=== PATIENT | male | born 1965 | race Caucasian/White ===

== ENCOUNTER → 2018-03-20 | Outpatient (CLI) | payer BC ==
[2018-03-20 13:53] VITALS: BP 177/91; PULSE 77; RESP 16; TEMP 98; BMI 55.0
[2018-03-20 15:16] LABS: HCT 45.4 % (39.0-53.0); HGB 14.5 gm/dL (13.0-17.5); MCH 25.5 pg (25.0-35.0); MCV 79.7 fL (80.0-100.0); Mean Platelet Volume 7.1; Platelet Count 185 k/uL (150-450); RBC 5.69 m/uL (4.30-5.90); RDW 15.7 % (11.5-15.5); WBC 5.8 k/uL (3.8-10.6)
[2018-03-20 15:24] LABS: ALT 62 U/L (21-72); AST 32 U/L (17-59); Albumin 4.1 g/dL (3.5-5.0); Alkaline Phosphatase 76 U/L (38-126); Anion Gap 14 mmol/L; Blood Urea Nitrogen 16 mg/dL (9-20); Calcium 9.5 mg/dL (8.4-10.2); Carbon Dioxide 27 mmol/L (22-30); Chloride 104 mmol/L (98-107); Cholesterol 111 mg/dL (<200); Glucose 134 mg/dL (74-99); HDL Cholesterol 27 mg/dL (40-60); LDL Cholesterol,Calculated 12 mg/dL (0-99); Potassium 3.8 mmol/L (3.5-5.1); Sodium 145 mmol/L (137-145); Total Bilirubin 0.4 mg/dL (0.2-1.3); Total Protein 6.7 g/dL (6.3-8.2); Triglycerides 361 mg/dL (<150)
--- NOTE | 2018-03-20 15:32 | P.HPBAR ---
Bariatric H&P - History & Physicial H&P Date: 03/20/18 History & Physicial: Visit/CC: initial visit Patient initial contact: Initial weight: 187.697 kg Initial weight in pounds: 413.80 Height: 6 ft Initial BMI: 56.1 Last weight: Current weight: 184.159 kg Current weight in pounds: 406.00 Current BMI: 55.0 [place] body weight (based on NIH guidelines): 80.739 kg Excess body weight loss: 3.3% The patient is a 53 year-old M who presents for Bariatric Assessment. Patient presents today for initial visit regarding sleeve gastrectomy. She's had lifetime problems obesity. Patient is morbidly obese with BMI 55. She is interested in sleeve gastrectomy. Past Medical History Past Medical History: Deep Vein Thrombosis (DVT), Hypertension, Pulmonary Embolus (PE), Sleep Apnea/CPAP/BIPAP Additional Past Medical History / Comment(s): CHF (BILATERAL LEG EDEMA), SLEEP APNEA (USES C-PAP), DVT and PE secondary to ankle surgery immobilization in 2012 ; took Xarelto for a while now takes aspirin, cellulitis in left leg w/ recurrent hospitalizations History of Any Multi-Drug Resistant Organisms: None Reported Past Surgical History: Orthopedic Surgery Additional Past Surgical History / Comment(s): LEFT ANKLE 2013, COLONOSCOPY, MULTIPLE SKIN BIOPSIES, Past Anesthesia/Blood Transfusion Reactions: No Reported Reaction Past Psychological History: Depression Additional Psychological History / Comment(s): 07/13/16 Patient currently taking Prozac for depression (brother and father in April 2016) Smoking Status: Never smoker Past Alcohol Use History: Rare - Past Family History Father Family Medical History: Dementia, Hypertension Additional Family Medical History / Comment(s): April 2016 Mother Family Medical History: Cancer, Dementia Additional Family Medical History / Comment(s): Multiple siblings of patient's mother had various forms of cancer. Surgical - Exam Vital Signs Temp Pulse Resp BP 98 F 77 16 177/91 03/20/18 13:51 03/20/18 13:51 03/20/18 13:51 03/20/18 13:51 - General well developed, no distress - Eyes PERRL - ENT normal pinna - Neck no masses - Respiratory normal expansion - Abdomen Abdomen: soft, non tender Results - Labs 03/20/18 14:38 03/20/18 14:38 Abnormal Lab Results - Last 24 Hours (Table) 03/20/18 03/20/18 Range/Units 14:38 14:38 MCV 79.7 L (80.0-100.0) fL RDW 15.7 H (11.5-15.5) % Glucose 134 H (74-99) mg/dL Triglycerides 361 H (<150) mg/dL HDL Cholesterol 27 L (40-60) mg/dL Diabetes panel 03/20/18 Range/Units 14:38 Sodium 145 (137-145) mmol/L Potassium 3.8 (3.5-5.1) mmol/L Chloride 104 (98-107) mmol/L Carbon Dioxide 27 (22-30) mmol/L BUN 16 (9-20) mg/dL Creatinine 0.80 (0.66-1.25) mg/dL Glucose 134 H (74-99) mg/dL Calcium 9.5 (8.4-10.2) mg/dL AST 32 (17-59) U/L ALT 62 (21-72) U/L Alkaline Phosphatase 76 (38-126) U/L Total Protein 6.7 (6.3-8.2) g/dL Albumin 4.1 (3.5-5.0) g/dL Triglycerides 361 H (<150) mg/dL HDL Cholesterol 27 L (40-60) mg/dL Calcium panel 03/20/18 Range/Units 14:38 Calcium 9.5 (8.4-10.2) mg/dL Albumin 4.1 (3.5-5.0) g/dL Pituitary panel 03/20/18 Range/Units 14:38 Sodium 145 (137-145) mmol/L Potassium 3.8 (3.5-5.1) mmol/L Chloride 104 (98-107) mmol/L Carbon Dioxide 27 (22-30) mmol/L BUN 16 (9-20) mg/dL Creatinine 0.80 (0.66-1.25) mg/dL Glucose 134 H (74-99) mg/dL Calcium 9.5 (8.4-10.2) mg/dL Adrenal panel 03/20/18 Range/Units 14:38 Sodium 145 (137-145) mmol/L Potassium 3.8 (3.5-5.1) mmol/L Chloride 104 (98-107) mmol/L Carbon Dioxide 27 (22-30) mmol/L BUN 16 (9-20) mg/dL Creatinine 0.80 (0.66-1.25) mg/dL Glucose 134 H (74-99) mg/dL Calcium 9.5 (8.4-10.2) mg/dL Total Bilirubin 0.4 (0.2-1.3) mg/dL AST 32 (17-59) U/L ALT 62 (21-72) U/L Alkaline Phosphatase 76 (38-126) U/L Total Protein 6.7 (6.3-8.2) g/dL Albumin 4.1 (3.5-5.0) g/dL Bariatric Assessment & Plan Plan: Morbid obesity with severe coronary disease. I went over the risks and benefits of sleeve gastrectomy including gastric leak, leak, perforation obstruction. Patient was scheduled for EGD. Bariatric Checklist Checklist: Plan: Checklist: EGD: 1. Hiatal hernia: 2. H. Pylori: HgbA1c: Vitamin D: Smoking: Never smoker Primary care physician referral: Psychiatry clearance: Cardiology clearance: Sleep study: Diet journal: VTE risk score: VTE risk level: Rehab needs at discharge:
[2018-03-20 19:03] LABS: Iron Saturation 19.79 (15.00-50.00)
[2018-03-20 19:10] LABS: Vitamin D 25 Hydroxy 36.2 ng/mL (30.0-100.0)
[2018-03-20 19:25] LABS: Folate, Serum >24.0 ng/mL
[2018-03-20 22:12] LABS: Hemoglobin A1C 5.8 % (4.0-6.0)
== END | disposition home or self-care (01) ==
LOC: BARWHC3 13:35
PROVIDERS: ATTEND Surgery
DX: E66.01 Morbid (severe) obesity due to excess calories (principal); I25.10 Atherosclerotic heart disease of native coronary artery without angina pectoris; F32.9 Major depressive disorder, single episode, unspecified; I11.9 Hypertensive heart disease without heart failure; G47.30 Sleep apnea, unspecified; E44.0 Moderate protein-calorie malnutrition; E55.9 Vitamin D deficiency, unspecified; Z86.718 Personal history of other venous thrombosis and embolism; Z86.711 Personal history of pulmonary embolism; Z99.89 Dependence on other enabling machines and devices; Z79.82 Long term (current) use of aspirin; Z68.43 Body mass index [BMI] 50.0-59.9, adult
CPT/HCPCS: 36415; 80053; 80061; 82306; 82607; 82728; 82746; 83036; 83540; 83550; 84425; 84443; 85027; 93005; 99211

== ENCOUNTER 2018-03-30 07:02 | Day surgery (SDC) | payer BC ==
[2018-03-28 15:01] VITALS: BMI 55.0
[~2018-03-30 07:02] MED LIST: LACTATED RINGERS 1,000 ML IV SCH
[2018-03-30 07:21] VITALS: TEMP 98.2
[2018-03-30] MEDS ORDERED: LIDOCAINE 1% 20 ML VIAL (10MG/ML) FOR IV START INTRADERMA ONE (07:41)
[2018-03-30 07:50] LABS: Glucose,Whole Blood 101 mg/dL (75-99)
[2018-03-30] MEDS ORDERED: GLYCOPYRROLATE 0.2 MG/ML 2 ML VIAL ONE (09:06)
[2018-03-30] MEDS ORDERED: LIDOCAINE 1% INJ 10MG/ML (20 ML MDV) ONE (09:06)
[2018-03-30] MEDS ORDERED: MIDAZOLAM 2 MG/2 ML VIAL ONE (09:06)
[2018-03-30] MEDS ORDERED: PROPOFOL 10 MG/ML 20 ML VIAL IV ONE (09:06)
[2018-03-30] MEDS ORDERED: KETAMINE 10 MG/ML 20 ML VIAL ONE (09:06)
--- NOTE | 2018-03-30 09:09 | P.GSHP ---
History of Present Illness H&P Date: 03/30/18 Chief Complaint: Morbid obesity, GERD, screening colonoscopy This is a 53-year-old male who presents today for EGD colonoscopy. Patient is currently undergoing workup for sleeve gastrectomy. He will also have a screening colonoscopy performed. Patient has some mild symptoms of GERD. His BMI is 55. Past Medical History Past Medical History: Deep Vein Thrombosis (DVT), Hypertension, Pulmonary Embolus (PE), Sleep Apnea/CPAP/BIPAP Additional Past Medical History / Comment(s): CHF (left LEG EDEMA), , DVT and PE secondary to ankle surgery immobilization in 2012;hx cellulitis left leg, yue inguinal hernias History of Any Multi-Drug Resistant Organisms: None Reported Past Surgical History: Heart Catheterization, Orthopedic Surgery Additional Past Surgical History / Comment(s): LEFT ANKLE 2013, COLONOSCOPY, MULTIPLE SKIN BIOPSIES, Past Anesthesia/Blood Transfusion Reactions: Motion Sickness Smoking Status: Never smoker - Past Family History Father Family Medical History: Dementia, Hypertension Additional Family Medical History / Comment(s): April 2016 Mother Family Medical History: Cancer Additional Family Medical History / Comment(s): . Medications and Allergies Home Medications Medication Instructions Recorded Confirmed Type Aspirin [Adult Low Dose Aspirin EC] 81 mg PO BID 07/15/16 03/28/18 History Lisinopril [Zestril] 40 mg PO BID 07/15/16 03/28/18 History Omeprazole 20 mg PO DAILY 07/15/16 03/28/18 History Potassium Chloride ER [K-Dur 20] 20 meq PO BID 07/15/16 03/28/18 History Spironolactone [Aldactone] 25 mg PO DAILY 07/15/16 03/28/18 History hydrALAZINE HCL 50 mg PO TID 07/15/16 03/28/18 History Escitalopram [Lexapro] 20 mg PO DAILY 03/21/18 03/28/18 History metFORMIN HCL [Glucophage] 500 mg PO BID 03/21/18 03/28/18 History sitaGLIPtin [Januvia] 100 mg PO DAILY 03/21/18 03/28/18 History Nebivolol HCl [Bystolic] 20 mg PO DAILY 03/28/18 03/28/18 History hydrALAZINE HCL 25 mg PO TID 03/28/18 03/28/18 History Allergies Allergy/AdvReac Type Severity Reaction Status Date / Time acetaminophen [From [place]] Allergy Anaphylaxis Verified 03/30/18 07:22 hydrocodone bitartrate Allergy Anaphylaxis Verified 03/30/18 07:22 [From [place]] codeine AdvReac Confusion Verified 03/30/18 07:22 Surgical - Exam Vital Signs Temp Pulse Resp BP Pulse Ox 98.2 F 70 18 180/87 97 03/30/18 07:20 03/30/18 07:20 03/30/18 07:20 03/30/18 07:20 03/30/18 07:20 - General well developed, no distress - Eyes PERRL - ENT normal pinna - Neck no masses - Respiratory normal expansion - Cardiovascular Rhythm: regular - Abdomen Abdomen: soft, non tender Results - Labs Abnormal Lab Results - Last 24 Hours (Table) 03/30/18 Range/Units 07:49 POC Glucose (mg/dL) 101 H (75-99) mg/dL Assessment and Plan Assessment: GERD, morbid obesity with BMI 55. We'll perform EGD and screening colonoscopy.
--- NOTE | 2018-03-30 09:29 | P.OP ---
Date of Procedure: 03/30/18 Preoperative Diagnosis: Morbid obesity Screening colonoscopy Postoperative Diagnosis: Antral gastritis No evidence of hiatal hernia Normal colon Procedure(s) Performed: EGD Colonoscopy Anesthesia: MAC Surgeon: Orlando Lares Pathology: other (Antrum) Condition: stable Disposition: PACU Description of Procedure: PROCEDURE: The patient was placed on the endoscopy table in the lateral position. Digital rectal examination was performed which revealed no abnormalities. The prostate was symmetrical without nodules. Flexible colonoscope was then placed in the patient's anus and passed throughout the entire colon. The ileocecal valve was visualized. The cecum, ascending, transverse, descending and sigmoid colon were normal. The rectum was normal as well. There were no masses, polyps or diverticula noted in the entire colon. Next, the gastroscope placed oropharynx passed in the esophagus and into the stomach. Scope was then placed through the pylorus. The first and second portion of the duodenum appeared normal. Scope was then brought back the antrum and this appeared mildly inflamed. Scope was then retroflexed and the remainder of the stomach appeared normal. The GE junction was at 40 cm. There is no evidence of hiatal hernia. The distal esophagus appeared normal. The proximal esophagus was normal. The scope was withdrawn for patient.
[2018-03-30 09:46] VITALS: RESP 16
[2018-03-30 09:55] VITALS: BP 157/75; PULSE 69
[2018-03-30 10:03] LABS: Glucose,Whole Blood 99 mg/dL (75-99)
== END 2018-03-30 10:11 | disposition home or self-care (01) ==
LOC: ORWHC2ENDO 07:02
PROVIDERS: ATTEND Surgery
DX: Z12.11 Encounter for screening for malignant neoplasm of colon (principal); K29.50 Unspecified chronic gastritis without bleeding; K21.9 Gastro-esophageal reflux disease without esophagitis; E66.01 Morbid (severe) obesity due to excess calories; I11.0 Hypertensive heart disease with heart failure; I50.9 Heart failure, unspecified; E11.9 Type 2 diabetes mellitus without complications; G47.33 Obstructive sleep apnea (adult) (pediatric); F39 Unspecified mood [affective] disorder; Z68.43 Body mass index [BMI] 50.0-59.9, adult; Z79.82 Long term (current) use of aspirin; Z86.711 Personal history of pulmonary embolism; Z86.718 Personal history of other venous thrombosis and embolism; Z82.49 Family history of ischemic heart disease and other diseases of the circulatory system; Z79.84 Long term (current) use of oral hypoglycemic drugs; Z79.899 Other long term (current) drug therapy; Z88.5 Allergy status to narcotic agent
CPT/HCPCS: 88305; 45378; 43239; J2250; J2001; J2704

== ENCOUNTER → 2018-04-10 | Outpatient (CLI) | payer BC ==
[2018-04-10 12:50] VITALS: BMI 54.8
== END | disposition home or self-care (01) ==
LOC: BARWHC3 08:32
PROVIDERS: ATTEND Surgery
DX: E66.01 Morbid (severe) obesity due to excess calories (principal)
CPT/HCPCS: 97804

== ENCOUNTER → 2018-04-17 | Outpatient (CLI) | payer BC ==
[2018-04-17 14:50] VITALS: BP 194/82; PULSE 82; RESP 16; TEMP 98.3; BMI 55.0
--- NOTE | 2018-04-17 15:08 | P.HPBAR ---
Bariatric H&P - History & Physicial H&P Date: 04/17/18 History & Physicial: Visit/CC: pre-surg Patient initial contact: Initial weight: 187.697 kg Initial weight in pounds: 413.80 Height: 6 ft Initial BMI: 56.1 Last weight: Current weight: 184.159 kg Current weight in pounds: 406.00 Current BMI: 55.0 [place] body weight (based on NIH guidelines): 80.739 kg Excess body weight loss: 3.3% The patient is a 53 year-old M who presents for Bariatric Assessment. Presents for preoperative sleeve gastric reconsultation. Patient is morbidly obese with BMI 55. Apparently scheduled for sleeve gastrectomy next week. Past Medical History Past Medical History: Deep Vein Thrombosis (DVT), Hypertension, Pulmonary Embolus (PE), Sleep Apnea/CPAP/BIPAP Additional Past Medical History / Comment(s): CHF (left LEG EDEMA), , DVT and PE secondary to ankle surgery immobilization in 2012;hx cellulitis left leg, yue inguinal hernias History of Any Multi-Drug Resistant Organisms: None Reported Past Surgical History: Heart Catheterization, Orthopedic Surgery Additional Past Surgical History / Comment(s): LEFT ANKLE 2013, COLONOSCOPY, MULTIPLE SKIN BIOPSIES, Past Anesthesia/Blood Transfusion Reactions: Motion Sickness Past Psychological History: Anxiety, Depression Additional Psychological History / Comment(s): . Smoking Status: Never smoker Past Alcohol Use History: Occasional Past Drug Use History: None Reported - Past Family History Father Family Medical History: Dementia, Hypertension Additional Family Medical History / Comment(s): April 2016 Mother Family Medical History: Cancer Additional Family Medical History / Comment(s): . Surgical - Exam Vital Signs Temp Pulse Resp BP 98.3 F 82 16 194/82 04/17/18 14:44 04/17/18 14:44 04/17/18 14:44 04/17/18 14:44 - General well developed, well nourished, no distress - Eyes PERRL - ENT normal pinna - Abdomen Abdomen: soft Bariatric Assessment & Plan Plan: RBC with BMI 55. Patient will be scheduled for sleeve gastrectomy next. We will over the risks and benefits of the sleeve yesterday. I discussed the patient the risk of stent gastric staple line disruption, bleeding or scarring. He is also aware of the risk of GERD. Bariatric Checklist Checklist: Plan: Checklist: EGD: 1. Hiatal hernia: 2. H. Pylori: HgbA1c: Vitamin D: Smoking: Never smoker Primary care physician referral: Dr. Reno Psychiatry clearance: Cardiology clearance: Sleep study: Diet journal: VTE risk score: VTE risk level: Rehab needs at discharge:
== END | disposition home or self-care (01) ==
LOC: BARWHC3 13:41
PROVIDERS: ATTEND Surgery
DX: Z01.818 Encounter for other preprocedural examination (principal); E66.01 Morbid (severe) obesity due to excess calories; Z68.43 Body mass index [BMI] 50.0-59.9, adult
CPT/HCPCS: 99211

== ENCOUNTER → 2018-04-26 | Outpatient (CLI) | payer BC ==
[2018-04-26 10:28] LABS: Basophils % (A) 0 %; Eosinophils # (A) 0.2 k/uL (0-0.7); Eosinophils % (A) 3 %; HCT 45.1 % (39.0-53.0); Lymphocytes # (A) 1.5 k/uL (1.0-4.8); Lymphocytes % (A) 24 %; MCH 26.6 pg (25.0-35.0); MCHC 33.4 g/dL (31.0-37.0); MCV 79.8 fL (80.0-100.0); Mean Platelet Volume 6.9; Monocytes # (A) 0.4 k/uL (0-1.0); Monocytes % (A) 6 %; Neutrophils # (A) 4.2 k/uL (1.3-7.7); Neutrophils % (A) 65 %; Platelet Count 179 k/uL (150-450); RBC 5.65 m/uL (4.30-5.90); RDW 15.9 % (11.5-15.5); WBC 6.4 k/uL (3.8-10.6)
[2018-04-26 11:01] LABS: ALT 68 U/L (21-72); AST 36 U/L (17-59); Alkaline Phosphatase 86 U/L (38-126); Anion Gap 11 mmol/L; Blood Urea Nitrogen 18 mg/dL (9-20); Calcium 9.4 mg/dL (8.4-10.2); Carbon Dioxide 28 mmol/L (22-30); Chloride 104 mmol/L (98-107); Glucose 111 mg/dL (74-99); Potassium 4.4 mmol/L (3.5-5.1); Sodium 143 mmol/L (137-145); Total Bilirubin 0.3 mg/dL (0.2-1.3); Total Protein 6.6 g/dL (6.3-8.2)
== END | disposition home or self-care (01) ==
LOC: LABWHC1 10:02
PROVIDERS: ATTEND Surgery
DX: Z01.812 Encounter for preprocedural laboratory examination (principal)
CPT/HCPCS: 36415; 80053; 85025

== ENCOUNTER 2018-05-11 07:40 | Inpatient (IN) | payer BC ==
[~2018-05-11 07:40] MED LIST changes: +DEXAMETHASONE SOD PHOSPHATE 10 MG/ML 1 ML VIAL IV ONE; +ENOXAPARIN 40 MG/0.4 ML SYRINGE SQ ONE; -LACTATED RINGERS 1,000 ML IV SCH; +ONDANSETRON 4 MG/2 ML VIAL IVP ONE
[2018-05-11] MEDS: LACTATED RINGERS 1,000 ML IV SCH (10:00)
[2018-05-11 10:07] LABS: Glucose,Whole Blood 92 mg/dL (75-99)
[2018-05-11] MEDS ORDERED: SCOPOLAMINE 1.5MG/72HR PATCH TRANSDERM ONE (10:14)
--- NOTE | 2018-05-11 10:50 | P.GSHP ---
History of Present Illness H&P Date: 05/11/18 Chief Complaint: Morbid obesity, BMI 50 This a 53-year-old male who presents today for laparoscopic sleeve gastrectomy. Patient's had lifetime problems obesity. Patient is aware the risk of surgery including conversion to the open procedure and injury to the stomach, liver spleen. He is also aware the risk of gastric staple line bleeding, disruption or scarring. Past Medical History Past Medical History: Diabetes Mellitus, Deep Vein Thrombosis (DVT), Hypertension, Pulmonary Embolus (PE), Sleep Apnea/CPAP/BIPAP Additional Past Medical History / Comment(s): CHF (left LEG EDEMA), , DVT and PE secondary to ankle surgery immobilization in 2012;hx cellulitis left leg, yue inguinal hernias History of Any Multi-Drug Resistant Organisms: None Reported Past Surgical History: Heart Catheterization, Orthopedic Surgery Additional Past Surgical History / Comment(s): LEFT ANKLE 2013, COLONOSCOPY, MULTIPLE SKIN BIOPSIES, Past Anesthesia/Blood Transfusion Reactions: Motion Sickness Past Psychological History: Anxiety, Depression Additional Psychological History / Comment(s): . Smoking Status: Never smoker Past Alcohol Use History: Occasional Past Drug Use History: None Reported - Past Family History Father Family Medical History: Dementia, Hypertension Additional Family Medical History / Comment(s): April 2016 Mother Family Medical History: Cancer Additional Family Medical History / Comment(s): . Medications and Allergies Home Medications Medication Instructions Recorded Confirmed Type Aspirin [Adult Low Dose Aspirin EC] 81 mg PO BID 07/15/16 05/11/18 History Lisinopril [Zestril] 40 mg PO BID 07/15/16 04/27/18 History Omeprazole 20 mg PO DAILY 07/15/16 04/27/18 History Potassium Chloride ER [K-Dur 20] 20 meq PO BID 07/15/16 04/27/18 History Spironolactone [Aldactone] 25 mg PO DAILY 07/15/16 04/27/18 History hydrALAZINE HCL 75 mg PO TID 07/15/16 04/27/18 History Escitalopram [Lexapro] 20 mg PO DAILY 03/21/18 04/27/18 History metFORMIN HCL [Glucophage] 250 mg PO BID 03/21/18 04/27/18 History sitaGLIPtin [Januvia] 100 mg PO DAILY 03/21/18 04/27/18 History Nebivolol HCl [Bystolic] 20 mg PO W/LUNCH 03/28/18 04/27/18 History Allergies Allergy/AdvReac Type Severity Reaction Status Date / Time acetaminophen [From [place]] Allergy Anaphylaxis Verified 05/11/18 09:49 hydrocodone bitartrate Allergy Anaphylaxis Verified 05/11/18 09:49 [From [place]] codeine AdvReac Confusion Verified 05/11/18 09:49 Surgical - Exam Vital Signs Temp Pulse Resp BP Pulse Ox 98.3 F 67 18 143/67 96 05/11/18 09:51 05/11/18 09:51 05/11/18 09:51 05/11/18 09:51 05/11/18 09:51 - General well developed, no distress - Eyes PERRL - ENT normal pinna - Neck no masses - Respiratory normal expansion - Cardiovascular Rhythm: regular - Abdomen Abdomen: soft, non tender Assessment and Plan Assessment: Morbid obesity with BMI 50. We will perform laparoscopic sleeve gastrectomy.
[2018-05-11] MEDS ORDERED: NEOSTIGMINE 1 MG/ML 10 ML VIAL ONE (11:19)
[2018-05-11] MEDS ORDERED: PROPOFOL 10 MG/ML 20 ML VIAL IV ONE (11:19)
[2018-05-11] MEDS ORDERED: fentaNYL (PF) 50 MCG/ML 2 ML AMP ONE (11:19)
[2018-05-11] MEDS ORDERED: ROCURONIUM BROMIDE 10 MG/ML 10 ML VIAL IV ONE (11:19)
[2018-05-11] MEDS ORDERED: GLYCOPYRROLATE 0.2 MG/ML 2 ML VIAL ONE (11:19)
[2018-05-11] MEDS ORDERED: MIDAZOLAM 2 MG/2 ML VIAL ONE (11:19)
[2018-05-11] MEDS ORDERED: ePHEDrine SULFATE/0.9% NACL/PF 50 MG/5 ML SYRINGE IV ONE (11:19)
[2018-05-11] MEDS ORDERED: LIDOCAINE 1% INJ 10MG/ML (20 ML MDV) ONE (11:19)
[2018-05-11] MEDS ORDERED: SUCCINYLCHOLINE CHLORIDE VIAL 200 MG/10 ML VIAL IV ONE (11:19)
[2018-05-11] MEDS ORDERED: KETAMINE 10 MG/ML 20 ML VIAL ONE (11:19)
[2018-05-11] MEDS ORDERED: HYDROmorphone (PF) 1 MG/ML ONE (11:19)
[2018-05-11] MEDS ORDERED: LACTATED RINGERS 1,000 ML IV ONE (12:06)
[2018-05-11] MEDS ORDERED: HYDROmorphone 0.5 MG/0.5 ML SYRINGE IVP PRN (12:57)
[2018-05-11] MEDS ORDERED: NALOXONE 0.4 MG/ML 1 ML VIAL IV PRN (12:57)
--- NOTE | 2018-05-11 13:02 | P.OP ---
Date of Procedure: 05/11/18 Preoperative Diagnosis: Morbid obesity, BMI 51 Postoperative Diagnosis: Morbid obesity, BMI 51 Procedure(s) Performed: Laparoscopic sleeve gastrectomy Anesthesia: JENNI Surgeon: Orlando Lares Estimated Blood Loss (ml): 100 Pathology: other (Stomach) Condition: stable Disposition: PACU Description of Procedure: The patient was placed on the operating room table in the supine position. She received general anesthesia and then was placed in dorsal lithotomy position. Her abdomen was prepped and draped in sterile fashion. The skin incision sites were anesthetized 1% local Xylocaine. And then the skin was incised with an 11 blade in the left lateral position. Using a blade less trocar under direct visualization the peritoneal cavity was entered. The abdomen was insufflated and then a 5 mm laparoscope was placed into the peritoneal cavity. A 5 mm trocar was placed in the right epigastric, and right lateral position. A 15 mm trocar was placed in the supra-umbilical position and another 5 mm trocar was placed in the left lateral position. The left lateral lobe of the liver was retracted. The stomach was visualized. The greater curvature of the stomach was then dissected using the Harmonic scissors. The dissection occurred approximately 5 cm from the pylorus to the level of the left josefa. There was no hiatal hernia seen. At this point a 40-[place] bougie dilator was placed the oropharynx and passed into the esophagus and into the stomach by the TESTING MACHINE OPERATOR. The sleeve gastrectomy was performed by using the powered echelon stapler with a seam guard buttress material. Sequential firings of the stapler were performed. The gastric remnant was then brought out through the 15 mm trocar site. The dilator was withdrawn. And a orogastric tube was replaced into the stomach. The stomach was insufflated with 200 mL of methylene blue normal saline. There was no evidence of extravasation. The abdomen was irrigated there is no bleeding seen. The Gregorio-Cole device was used to close the 15 mm trocar with 0 Vicryl. Skin was closed with interrupted 3-0 Monocryl sutures once the trochars withdrawn. Dermabond dressing was applied. Patient was sent to recovery in stable condition.
[2018-05-11] MEDS ORDERED: ONDANSETRON 4 MG/2 ML VIAL IVP ONE (13:24)
[2018-05-11] MEDS: HYDROmorphone 0.5 MG/0.5 ML SYRINGE IVP PRN ×3 (13:27→14:36)
[2018-05-11 13:45] LABS: Glucose,Whole Blood 134 mg/dL (75-99)
[2018-05-11] MEDS ORDERED: PROMETHAZINE INJ 25 MG/ML 1 ML VIAL IVPB ONE (14:08)
[2018-05-11] MEDS: ONDANSETRON 4 MG/2 ML VIAL IVP PRN ×2 (15:12→22:15)
[2018-05-11] MEDS: ALBUTEROL NEBULIZED 2.5 MG/3 ML INHALATION SCH ×2 (15:24→19:38)
[2018-05-11 15:33] VITALS: BMI 50.1
[2018-05-11] MEDS: 0.9% NACL WITH KCL 20 MEQ/L 1,000 ML IV SCH ×2 (15:53→23:51)
--- NOTE | 2018-05-11 17:19 | US ---
EXAMINATION TYPE: US venous doppler duplex LE LT DATE OF EXAM: 05/11/2018 5:03 PM COMPARISON: NONE CLINICAL HISTORY: DVT history ; patient stated is post gastric sleeve bypass surgery this week; prior left leg DVT with chronic intermittent left leg swelling since 2014 after left ankle surgery SIDE PERFORMED: Left TECHNIQUE: The lower extremity deep venous system is examined utilizing real time linear array sonog elena with graded compression, doppler sonography and color-flow sonography. VESSELS IMAGED: Common Femoral Vein Deep Femoral Vein Greater Saphenous Vein * Femoral Vein Popliteal Vein Small Saphenous Vein * Proximal Calf Veins (* superficial vessels) Left Leg: Negative for DVT IMPRESSION: Negative exam. No evidence of deep venous thrombosis in the left leg.
[2018-05-11] MEDS ORDERED: ONDANSETRON 4 MG/2 ML VIAL IVP STA (17:33)
[2018-05-11] MEDS: KETOROLAC 30 MG/ML 1 ML VIAL IVP SCH ×2 (17:40→23:50)
[2018-05-11 18:13] LABS: Glucose,Whole Blood 147 mg/dL (75-99)
[2018-05-11 21:17] LABS: Glucose,Whole Blood 142 mg/dL (75-99)
[2018-05-11] MEDS: INSULIN ASPART 100 UNIT/ML 1 ML 10 ML VIAL SQ SCH (21:35)
[2018-05-11] MEDS: LISINOPRIL 20 MG TAB PO SCH (21:35)
--- NOTE | 2018-05-11 22:23 | P.CONS ---
History of Present Illness - Reason for Consult Consult date: 05/11/18 Medical management of hypertension diabetes and other multiple medical prob - Chief Complaint Elective sleeve gastrectomy - History of Present Illness Patient is a 53-year-old male with a known history of morbid obesity BMI 50.1, hypertension, diabetes type 2, history of DVT/PE and also obstructive sleep apnea on CPAP at home was admitted to the hospital for elective Laparoscopic sleeve gastrectomy. Patient tolerated the procedure very well. Currently denied any complaints of chest pain or shortness of breath. No nausea vomiting or abdominal pain. Patient does have some soreness at the surgical site. Otherwise no fever no chills. No headache or dizziness or lightheadedness. Review of Systems Constitutional: Patient denies any fever or chills . No generalized weakness or weight loss. Abdomen: Patient denied nausea vomiting and diarrhea and abdominal pain. Does have some soreness in the abdomen Cardiovascular: Patient denies any chest pain or short of breath no palpitations. Respiratory: patient denied any cough is from production. No shortness of breath Neurologic: Patient denied any numbness or tingling headache. Musculoskeletal: Patient denies any complaints of joint swelling or deformity. Skin: Negative Psychiatric: Negative Endocrine: No heat or cold intolerance. No recent weight gain. Genitourinary: No dysuria or hematuria. All other 14 point ROS negative except the above Past Medical History Past Medical History: Diabetes Mellitus, Deep Vein Thrombosis (DVT), Hypertension, Pulmonary Embolus (PE), Sleep Apnea/CPAP/BIPAP Additional Past Medical History / Comment(s): CHF (left LEG EDEMA), , DVT and PE secondary to ankle surgery immobilization in 2012;hx cellulitis left leg, yue inguinal hernias History of Any Multi-Drug Resistant Organisms: None Reported Past Surgical History: Heart Catheterization, Orthopedic Surgery Additional Past Surgical History / Comment(s): LEFT ANKLE 2013, COLONOSCOPY, MULTIPLE SKIN BIOPSIES, Past Anesthesia/Blood Transfusion Reactions: Motion Sickness Past Psychological History: Anxiety, Depression Additional Psychological History / Comment(s): . Smoking Status: Never smoker Past Alcohol Use History: Occasional Past Drug Use History: None Reported - Past Family History Father Family Medical History: Dementia, Hypertension Additional Family Medical History / Comment(s): April 2016 Mother Family Medical History: Cancer Additional Family Medical History / Comment(s): . Medications and Allergies Home Medications Medication Instructions Recorded Confirmed Type Aspirin [Adult Low Dose Aspirin EC] 81 mg PO BID 07/15/16 05/11/18 History Lisinopril [Zestril] 40 mg PO BID 07/15/16 05/11/18 History Omeprazole 20 mg PO DAILY 07/15/16 05/11/18 History Potassium Chloride ER [K-Dur 20] 20 meq PO BID 07/15/16 05/11/18 History Spironolactone [Aldactone] 25 mg PO DAILY 07/15/16 05/11/18 History hydrALAZINE HCL 75 mg PO TID 07/15/16 05/11/18 History Escitalopram [Lexapro] 20 mg PO DAILY 03/21/18 05/11/18 History metFORMIN HCL [Glucophage] 250 mg PO BID 03/21/18 05/11/18 History sitaGLIPtin [Januvia] 100 mg PO DAILY 03/21/18 05/11/18 History Nebivolol HCl [Bystolic] 20 mg PO W/LUNCH 03/28/18 05/11/18 History Allergies Allergy/AdvReac Type Severity Reaction Status Date / Time acetaminophen [From [place]] Allergy Anaphylaxis Verified 05/11/18 14:05 hydrocodone bitartrate Allergy Anaphylaxis Verified 05/11/18 14:05 [From [place]] codeine AdvReac Confusion Verified 05/11/18 14:05 Physical Exam Vitals: Vital Signs Temp Pulse Pulse Resp BP BP Pulse Ox 05/11/18 14:30 75 16 142/64 100 05/11/18 14:15 75 16 150/70 99 05/11/18 14:00 75 16 157/72 99 05/11/18 13:45 73 16 139/64 99 05/11/18 13:30 84 16 140/67 97 05/11/18 13:17 97.2 F L 73 16 139/66 94 L 05/11/18 09:51 98.3 F 67 18 143/67 96 Intake and Output 05/10/18 05/11/18 05/11/18 22:59 06:59 14:59 Intake Total 1800 Output Total 100 Balance 1700 Intake: IV 1800 Output: Estimated Blood Loss 100 Other: Weight 167.602 kg PHYSICAL EXAMINATION: Patient is lying in the bed comfortably, no acute distress, awake alert and oriented. Morbidly obese. HEENT: Normocephalic. Neck is supple. Pupils reactive. Nostrils clear. Oral cavity is moist. Ears reveal no drainage. Neck reveals no JVD, carotid bruits, or thyromegaly. CHEST EXAMINATION: Trachea is central. Symmetrical expansion. Bibasilar diminished air entry. Lung ma clear to auscultation and percussion. CARDIAC: Normal S1, S2 with no gallops. No murmurs ABDOMEN: Soft. Bowel sounds normal. No organomegaly. No abdominal bruits. Extremities: reveal no edema. No clubbing or cyanosis Neurologically awake, alert, oriented x3 with well-coordinated movements. No focal deficits noted Skin: No rash or skin lesions. Psychiatric: Cooperative. Could not be assessed completely Musculoskeletal: No joint swelling or deformity. Normal range of motion. Results Labs: Abnormal Lab Results - Last 24 Hours (Table) 05/11/18 Range/Units 13:43 POC Glucose (mg/dL) 134 H (75-99) mg/dL Assessment and Plan Assessment: Morbid obesity status post laparoscopic sleeve gastrectomy on 05/11/2018 Morbid obesity BMI 50.1 Hypertension. Fairly controlled. diabetes type 2. [id number] History of DVT/PE secondary to ankle surgery immobilization in 2012 Bilateral lower extremities chronic swelling with venous stasis changes. Obstructive sleep apnea on CPAP at home Bilateral inguinal hernias Anxiety/depression DVT prophylaxis Plan: Patient will be continued on home blood pressure medications as tolerated. Patient is on multiple blood pressure medications at home including nebivolol, lisinopril, spironolactone, hydralazine. Patient will be started on insulin sliding scale and Accu-Cheks. Continue with pain medications and oral regimen. We will check bilateral lower extremity duplex scan to rule out DVT Encourage ambulation and incentive spirometry. DVT prophylaxis. We will follow up closely Further recommendations based on the clinical course. Discussed with his family at bedside in detail. Thank you for your consult Time with Patient: Greater than 30
[2018-05-11] MEDS ORDERED: ONDANSETRON 4 MG/2 ML VIAL IVP PRN (22:47)
[2018-05-12] MEDS: KETOROLAC 30 MG/ML 1 ML VIAL IVP SCH ×4 (05:09→23:42)
[2018-05-12] MEDS: 0.9% NACL WITH KCL 20 MEQ/L 1,000 ML IV SCH (05:47)
[2018-05-12] MEDS: LACTATED RINGERS 1,000 ML IV SCH (05:48)
[2018-05-12 06:44] LABS: Anisocytosis Slight; Basophils % (A) 0 %; Eosinophils % (A) 0 %; HCT 41.6 % (39.0-53.0); HGB 13.7 gm/dL (13.0-17.5); Lymphocytes # (A) 0.7 k/uL (1.0-4.8); Lymphocytes % (A) 11 %; MCH 26.8 pg (25.0-35.0); MCV 81.4 fL (80.0-100.0); Mean Platelet Volume 7.3; Monocytes # (A) 0.4 k/uL (0-1.0); Monocytes % (A) 6 %; Neutrophils # (A) 5.2 k/uL (1.3-7.7); Neutrophils % (A) 82 %; Platelet Count 160 k/uL (150-450); RBC 5.11 m/uL (4.30-5.90); WBC 6.3 k/uL (3.8-10.6)
[2018-05-12 06:52] LABS: Anion Gap 15 mmol/L; Blood Urea Nitrogen 19 mg/dL (9-20); Calcium 8.6 mg/dL (8.4-10.2); Carbon Dioxide 22 mmol/L (22-30); Chloride 107 mmol/L (98-107); Phosphorus 3.2 mg/dL (2.5-4.5); Potassium 4.6 mmol/L (3.5-5.1); Sodium 144 mmol/L (137-145)
[2018-05-12 07:28] LABS: Glucose,Whole Blood 108 mg/dL (75-99)
[2018-05-12] MEDS: INSULIN ASPART 100 UNIT/ML 1 ML 10 ML VIAL SQ SCH ×4 (07:37→21:32)
[2018-05-12] MEDS: ALBUTEROL NEBULIZED 2.5 MG/3 ML INHALATION SCH ×4 (08:02→20:54)
--- NOTE | 2018-05-12 08:38 | P.PN ---
Subjective Progress Note Date: 05/12/18 53-year-old male sitting up on the edge of the bed this morning. Patient reports a nausea sensation no active emesis states is belching and passing gas rectal no stool no difficulty in urinating surgical incision sites dry Patient is postop May 11 laparoscopic sleeve gastrectomy for morbid obesity BMI 51 Objective - Vital Signs Vital signs: Vital Signs Temp 98.4 F 05/12/18 07:33 Pulse 92 05/12/18 08:11 Resp 17 05/12/18 07:33 BP 154/75 05/12/18 07:33 Pulse Ox 94 L 05/12/18 08:00 Intake & Output 05/11/18 05/12/18 05/12/18 18:59 06:59 18:59 Intake Total 1800 1800 Output Total 100 Balance 1700 1800 Weight 167.602 kg Intake: IV 1800 Intake, IV Titration 1800 Amount 0.9% NaCl with KCl 20 Meq 1800 /l 1,000 ml @ 150 mls/hr IV .Q6H40M [facility] Rx#: [id number] Output: Estimated Blood Loss 100 Other: Voiding Method Toilet # Voids 1 - Exam Physical exam 53-year-old pleasant oriented 3 sitting up on the edge of the bed denies dizziness lightheadedness chest pain or shortness of breath reports a nausea sensation no emesis Lungs adequate air movement bilaterally on room air sats are 94% Heart S1-S2 audible regular Abdomen obese soft not distended bowel tones present surgical incision site dressings dry reports a nausea sensation no emesis passing gas rectally belching no stool no difficulty in urinating surgical tenderness appropriate Extremities chronic venous stasis lower extremities chronic edema nonpitting - Labs CBC & Chem 7: 05/12/18 06:16 05/12/18 06:16 Labs: Abnormal Lab Results - Last 24 Hours (Table) 05/11/18 05/11/18 05/11/18 Range/Units 13:43 18:10 21:15 RDW (11.5-15.5) % Lymphocytes # (1.0-4.8) k/uL POC Glucose (mg/dL) 134 H 147 H 142 H (75-99) mg/dL 05/12/18 05/12/18 Range/Units 06:16 07:14 RDW 16.0 H (11.5-15.5) % Lymphocytes # 0.7 L (1.0-4.8) k/uL POC Glucose (mg/dL) 108 H (75-99) mg/dL Assessment and Plan Assessment: Impression Morbid obesity BMI 51 due to excessive calories Postop April 11 laparoscopic sleeve gastrectomy Obstructive sleep apnea with CPAP therapy History of left leg DVT Type 2 diabetes non-insulin Hypertension essential Bilateral lower extremity venous stasis changes with chronic lower extremity edema Anxiety depressive disorder Plan Continue postop bariatric care PT OT eval Follow-up on pending studies Encourage the use of the incentive spirometer Encourage ambulation Home meds as appropriate Pain control The above impression and plan of care have been discussed and directed by signing physician. Kalpana Logan nurse practitioner acting as scribe for signing physician.
[2018-05-12] MEDS ORDERED: ENOXAPARIN 40 MG/0.4 ML SYRINGE SQ SCH (09:00)
[2018-05-12] MEDS ORDERED: NON-FORMULARY DRUG (Omeprazole [Omeprazole] 20 MG) PO SCH (09:00)
--- NOTE | 2018-05-12 10:07 | FL ---
SINGLE CONTRAST UPPER GI EXAMINATION: CLINICAL HISTORY: 53-year-old male postop bariatric surgery, gastric sleeve. TECHNIQUE: Single contrast exam performed with 50 ml Isovue-370 contrast. Total fluoroscopy time: 1.55 minutes. Total images: 25. FINDINGS: The patient swallowed oral contrast without difficulty or delay. Esophageal peristalsis and motility are within normal limits. Postsurgical changes of sleeve gastrectomy are demonstrated. There is initial mild delay in passage o f contrast into the stomach and then into the surgery as portion of the stomach. There are 2 focal ac cumulations of contrast along the proximal stomach likely corresponding to nondistended residual fund us prior to the sleeve gastrectomy. There is satisfactory passage of contrast across the gastric slee ve without evidence of contrast extravasation to suggest leak. No significant postsurgical free air is identified on either side. IMPRESSION: 1. Outpouching of contrast along the proximal stomach prior to the sleeve likely transition between n onsurgerized stomach and the sleeve gastrectomy. No convincing evidence for leak. Images are availabl e for review by the surgeon. 2. Mild postoperative obstruction/delay. 3. No postsurgical free air seen.
[2018-05-12] MEDS: ENOXAPARIN 60 MG/0.6 ML SYRINGE SQ SCH ×2 (10:26→21:34)
[2018-05-12] MEDS: ESCITALOPRAM 20 MG TAB PO SCH (10:27)
[2018-05-12] MEDS: PANTOPRAZOLE 40 MG/10 ML VIAL IV SCH (10:27)
[2018-05-12] MEDS: LISINOPRIL 20 MG TAB PO SCH ×2 (10:27→21:34)
[2018-05-12 11:27] LABS: Glucose,Whole Blood 121 mg/dL (75-99)
[2018-05-12] MEDS: 1: MVI, ADULT NO.4 WITH VIT K 10 ML, THIAMINE 100 MG, FOLIC ACID 1 MG, POTASSIUM CHLORID IV SCH ×12 (14:22→20:09)
[2018-05-12 16:53] LABS: Glucose,Whole Blood 102 mg/dL (75-99)
[2018-05-12 18:57] LABS: Hemoglobin A1C 5.6 % (4.0-6.0)
[2018-05-12 19:57] LABS: Glucose,Whole Blood 101 mg/dL (75-99)
--- NOTE | 2018-05-12 23:12 | P.PN ---
Subjective Progress Note Date: 05/12/18 Principal diagnosis: Laparoscopic gastric sleeve surgery Patient is a 53-year-old male with a known history of morbid obesity BMI 50.1, hypertension, diabetes type 2, history of DVT/PE and also obstructive sleep apnea on CPAP at home was admitted to the hospital for elective Laparoscopic sleeve gastrectomy. Patient tolerated the procedure very well. Currently denied any complaints of chest pain or shortness of breath. No nausea vomiting or abdominal pain. Patient does have some soreness at the surgical site. Otherwise no fever no chills. No headache or dizziness or lightheadedness. 05/12/2018 Patient denied any complaints of chest pain or shortness of breath. Able to tolerate liquids. Upper GI series showed no evidence of leak. No fever no chills. Blood pressure is well controlled. No other acute overnight issues. Pain is fairly controlled All other review of systems negative except the above. current medications reviewed Objective - Vital Signs Vital signs: Vital Signs Temp 98.4 F 05/12/18 07:33 Pulse 92 05/12/18 11:45 Resp 17 05/12/18 07:33 BP 154/75 05/12/18 07:33 Pulse Ox 94 L 05/12/18 08:00 Intake & Output 05/11/18 05/12/18 05/12/18 18:59 06:59 18:59 Intake Total 1800 1800 Output Total 100 Balance 1700 1800 Weight 167.602 kg 167.602 kg Intake: IV 1800 Intake, IV Titration 1800 Amount 0.9% NaCl with KCl 20 Meq 1800 /l 1,000 ml @ 150 mls/hr IV .Q6H40M [facility] Rx#: [id number] Output: Estimated Blood Loss 100 Other: Voiding Method Toilet # Voids 1 - Exam PHYSICAL EXAMINATION: Patient is lying in the bed comfortably, no acute distress, awake alert and oriented. Morbidly obese. HEENT: Normocephalic. Neck is supple. Pupils reactive. Nostrils clear. Oral cavity is moist. Ears reveal no drainage. Neck reveals no JVD, carotid bruits, or thyromegaly. CHEST EXAMINATION: Trachea is central. Symmetrical expansion. Bibasilar diminished air entry. Lung ma clear to auscultation and percussion. CARDIAC: Normal S1, S2 with no gallops. No murmurs ABDOMEN: Soft. Bowel sounds normal. No organomegaly. No abdominal bruits. Extremities: reveal no edema. No clubbing or cyanosis Neurologically awake, alert, oriented x3 with well-coordinated movements. No focal deficits noted Skin: No rash or skin lesions. Psychiatric: Cooperative. Could not be assessed completely Musculoskeletal: No joint swelling or deformity. Normal range of motion. - Labs CBC & Chem 7: 05/12/18 06:16 05/12/18 06:16 Labs: Abnormal Lab Results - Last 24 Hours (Table) 05/11/18 05/11/18 05/11/18 Range/Units 13:43 18:10 21:15 RDW (11.5-15.5) % Lymphocytes # (1.0-4.8) k/uL POC Glucose (mg/dL) 134 H 147 H 142 H (75-99) mg/dL 05/12/18 05/12/18 05/12/18 Range/Units 06:16 07:14 11:24 RDW 16.0 H (11.5-15.5) % Lymphocytes # 0.7 L (1.0-4.8) k/uL POC Glucose (mg/dL) 108 H 121 H (75-99) mg/dL Assessment and Plan Assessment: Morbid obesity status post laparoscopic sleeve gastrectomy on 05/11/2018 Morbid obesity BMI 50.1 Hypertension. Fairly controlled. diabetes type 2. 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 Obstructive sleep apnea on CPAP at home Bilateral inguinal hernias Anxiety/depression DVT prophylaxis Plan: Patient will be continued on home blood pressure medications as tolerated. Patient is on multiple blood pressure medications at home including nebivolol, lisinopril, spironolactone, hydralazine. Patient will be started on insulin sliding scale and Accu-Cheks. Continue with pain medications and oral regimen. We will check bilateral lower extremity duplex scan to rule out DVT Encourage ambulation and incentive spirometry. DVT prophylaxis. We will follow up closely Further recommendations based on the clinical course. Discussed with his family at bedside in detail. Thank you for your consult Time with Patient: Greater than 30
[2018-05-13] MEDS: LACTATED RINGERS 1,000 ML IV SCH (05:32)
[2018-05-13] MEDS: KETOROLAC 30 MG/ML 1 ML VIAL IVP SCH ×2 (05:38→12:21)
[2018-05-13 06:47] LABS: Glucose,Whole Blood 88 mg/dL (75-99)
[2018-05-13 07:36] VITALS: BP 151/74; RESP 16; TEMP 98.3
[2018-05-13] MEDS: ALBUTEROL NEBULIZED 2.5 MG/3 ML INHALATION SCH ×2 (07:38→10:55)
[2018-05-13] MEDS: ESCITALOPRAM 20 MG TAB PO SCH (08:30)
[2018-05-13] MEDS: LISINOPRIL 20 MG TAB PO SCH (08:30)
[2018-05-13] MEDS: ENOXAPARIN 60 MG/0.6 ML SYRINGE SQ SCH (08:30)
[2018-05-13] MEDS: PANTOPRAZOLE 40 MG/10 ML VIAL IV SCH (08:31)
[2018-05-13] MEDS: INSULIN ASPART 100 UNIT/ML 1 ML 10 ML VIAL SQ SCH ×2 (08:38→13:26)
[2018-05-13] MEDS: 1: MVI, ADULT NO.4 WITH VIT K 10 ML, THIAMINE 100 MG, FOLIC ACID 1 MG, POTASSIUM CHLORID IV SCH ×6 (08:39)
[2018-05-13 11:06] VITALS: PULSE 65
--- NOTE | 2018-05-13 11:12 | P.DS ---
Providers Date of admission: 05/11/18 08:37 Expected date of discharge: 05/13/18 Attending physician: Orlando Lares Consults: 05/11/18 12:57 Consult Physician Routine Consulting Provider: Lyndsay Holm Consult Reason/Comments: med manage Do you want consulting provider notified?: Yes Primary care physician: Chris Rowdy [facility] Course: This a 53-year-old male who underwent laparoscopic sleeve gastric. Patient did well postop. Please see hospital chart for details. Procedures: Laparoscopic sleeve gastrectomy Patient Condition at Discharge: Good Plan - Discharge Summary Discharge Rx Participant: Yes New Discharge Prescriptions: New Bisacodyl [Dulcolax] 5 mg PO DAILY PRN #10 tablet. PRN Reason: Constipation HYDROcodone/APAP 7.5-325MG [[place] 7.5-325] 1 tab PO Q4H PRN 3 Days #18 tab PRN Reason: Pain Omeprazole 40 mg PO DAILY #60 capsule. Ondansetron Odt [Zofran Odt] 4 mg PO Q8HR PRN #9 tab PRN Reason: Nausea Simethicone 40 mg/0.6 ml Drops [Mylicon Drops] 40 mg PO PCHS PRN #30 ml PRN Reason: Gas No Action Potassium Chloride ER [K-Dur 20] 20 meq PO BID hydrALAZINE HCL 75 mg PO TID Spironolactone [Aldactone] 25 mg PO DAILY Omeprazole 20 mg PO DAILY Lisinopril [Zestril] 40 mg PO BID Aspirin [Adult Low Dose Aspirin EC] 81 mg PO BID sitaGLIPtin [Januvia] 100 mg PO DAILY Escitalopram [Lexapro] 20 mg PO DAILY metFORMIN HCL [Glucophage] 250 mg PO BID Nebivolol HCl [Bystolic] 20 mg PO W/LUNCH Discharge Medication List Aspirin [Adult Low Dose Aspirin EC] 81 mg PO BID 07/15/16 [History] Lisinopril [Zestril] 40 mg PO BID 07/15/16 [History] Omeprazole 20 mg PO DAILY 07/15/16 [History] Potassium Chloride ER [K-Dur 20] 20 meq PO BID 07/15/16 [History] Spironolactone [Aldactone] 25 mg PO DAILY 07/15/16 [History] hydrALAZINE HCL 75 mg PO TID 09/08/16 [History] Escitalopram [Lexapro] 20 mg PO DAILY 03/21/18 [History] metFORMIN HCL [Glucophage] 250 mg PO BID 03/21/18 [History] sitaGLIPtin [Januvia] 100 mg PO DAILY 03/21/18 [History] Nebivolol HCl [Bystolic] 20 mg PO W/LUNCH 03/28/18 [History] Bisacodyl [Dulcolax] 5 mg PO DAILY PRN #10 tablet. 05/13/18 [Rx] HYDROcodone/APAP 7.5-325MG [[place] 7.5-325] 1 tab PO Q4H PRN 3 Days #18 tab 05/13 [Rx] Omeprazole 40 mg PO DAILY #60 capsule. 05/13/18 [Rx] Ondansetron Odt [Zofran Odt] 4 mg PO Q8HR PRN #9 tab 05/13/18 [Rx] Simethicone 40 mg/0.6 ml Drops [Mylicon Drops] 40 mg PO PCHS PRN #30 ml [Rx] Follow up Appointment(s)/Referral(s): [facility] [NON-STAFF] - 1 Week Discharge Disposition: HOME SELF-CARE
[2018-05-13 11:35] LABS: Glucose,Whole Blood 104 mg/dL (75-99)
[2018-05-13] MEDS ORDERED: NEBIVOLOL 5 MG TAB PO SCH (12:30)
--- NOTE | 2018-05-13 22:33 | P.PN ---
Subjective Progress Note Date: 05/13/18 Principal diagnosis: Laparoscopic gastric sleeve surgery Patient is a 53-year-old male with a known history of morbid obesity BMI 50.1, hypertension, diabetes type 2, history of DVT/PE and also obstructive sleep apnea on CPAP at home was admitted to the hospital for elective Laparoscopic sleeve gastrectomy. Patient tolerated the procedure very well. Currently denied any complaints of chest pain or shortness of breath. No nausea vomiting or abdominal pain. Patient does have some soreness at the surgical site. Otherwise no fever no chills. No headache or dizziness or lightheadedness. 05/12/2018 Patient denied any complaints of chest pain or shortness of breath. Able to tolerate liquids. Upper GI series showed no evidence of leak. No fever no chills. Blood pressure is well controlled. No other acute overnight issues. Pain is fairly controlled 05/13/2018 Patient denied any new complaints today. Tolerating liquid diet. No other acute overnight issues. Patient is being discharged home today. Discharge medication reconciliation was done. All other review of systems negative except the above. current medications reviewed Objective - Vital Signs Vital signs: Vital Signs Temp 98.3 F 05/13/18 07:36 Pulse 65 05/13/18 11:05 Resp 16 05/13/18 07:36 BP 151/74 05/13/18 07:36 Pulse Ox 95 05/13/18 08:00 Intake & Output 05/12/18 05/13/18 05/13/18 18:59 06:59 18:59 Intake Total 650 2221.2 Balance 650 2221.2 Weight 167.602 kg Intake: Intake, IV Titration 650 2221.2 Amount 0.9% NaCl with KCl 20 Meq 1200 /l 1,000 ml @ 100 mls/hr IV .BY DURATION [facility] Rx#: [id number] 0.9% NaCl with KCl 20 Meq 450 /l 1,000 ml @ 150 mls/hr IV .Q6H40M [facility] Rx#: [id number] Mvi, Adult No.4 with Vit 200 1021.2 K 10 ml Thiamine 100 mg Folic Acid 1 mg Potassium Chloride 20 meq In Sodium Chloride 0.9% 1, 000 ml @ 100 mls/hr IV . BY DURATION [facility] Rx#: [id number] Other: Voiding Method Toilet # Voids 2 2 - Exam PHYSICAL EXAMINATION: Patient is lying in the bed comfortably, no acute distress, awake alert and oriented. Morbidly obese. HEENT: Normocephalic. Neck is supple. Pupils reactive. Nostrils clear. Oral cavity is moist. Ears reveal no drainage. Neck reveals no JVD, carotid bruits, or thyromegaly. CHEST EXAMINATION: Trachea is central. Symmetrical expansion. Bibasilar diminished air entry. Lung ma clear to auscultation and percussion. CARDIAC: Normal S1, S2 with no gallops. No murmurs ABDOMEN: Soft. Bowel sounds normal. No organomegaly. No abdominal bruits. Extremities: reveal no edema. No clubbing or cyanosis Neurologically awake, alert, oriented x3 with well-coordinated movements. No focal deficits noted Skin: No rash or skin lesions. Psychiatric: Cooperative. Could not be assessed completely Musculoskeletal: No joint swelling or deformity. Normal range of motion. - Labs CBC & Chem 7: 05/12/18 06:16 05/12/18 06:16 Labs: Abnormal Lab Results - Last 24 Hours (Table) 05/12/18 05/12/18 05/12/18 Range/Units 11:24 16:50 19:56 POC Glucose (mg/dL) 121 H 102 H 101 H (75-99) mg/dL Assessment and Plan Assessment: Morbid obesity status post laparoscopic sleeve gastrectomy on 05/11/2018 Morbid obesity BMI 50.1 Hypertension. controlled. diabetes type 2. 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 Obstructive sleep apnea on CPAP at home Bilateral inguinal hernias Anxiety/depression DVT prophylaxis Plan: Patient will be continued on home blood pressure medications as tolerated. Patient is on multiple blood pressure medications at home including nebivolol, lisinopril, spironolactone, hydralazine. Spironolactone and hydralazine were held upon discharge. Patient will be started on insulin sliding scale and Accu- Cheks. Continue with pain medications and bowel regimen. Negative bilateral lower extremity duplex scan to rule out DVT Encourage ambulation and incentive spirometry. DVT prophylaxis. Patient is being discharged home today. Time with Patient: Greater than 30
== END 2018-05-13 15:16 | disposition home or self-care (01) | DRG 621 ==
LOC: 2ORMAIN 08:37 → 3SUR 13:24 → EDSTATUS 17:30
PROVIDERS: ADMIT Surgery; ATTEND Surgery
PROC: 0DB64Z3 Excision of Stomach, Percutaneous Endoscopic Approach, Vertical (ICD-10-PCS; principal; 2018-05-11 11:10)
DX: E66.01 Morbid (severe) obesity due to excess calories (principal); I50.9 Heart failure, unspecified; I11.0 Hypertensive heart disease with heart failure; Z68.43 Body mass index [BMI] 50.0-59.9, adult; G47.33 Obstructive sleep apnea (adult) (pediatric); I87.8 Other specified disorders of veins; K40.20 Bilateral inguinal hernia, without obstruction or gangrene, not specified as recurrent; F32.9 Major depressive disorder, single episode, unspecified; F41.9 Anxiety disorder, unspecified; E11.9 Type 2 diabetes mellitus without complications; Z79.82 Long term (current) use of aspirin; Z79.84 Long term (current) use of oral hypoglycemic drugs; Z79.899 Other long term (current) drug therapy; Z86.711 Personal history of pulmonary embolism; Z86.718 Personal history of other venous thrombosis and embolism; Z88.6 Allergy status to analgesic agent; Z88.5 Allergy status to narcotic agent; Z81.8 Family history of other mental and behavioral disorders; Z82.49 Family history of ischemic heart disease and other diseases of the circulatory system; Z80.9 Family history of malignant neoplasm, unspecified
CPT/HCPCS: 74240; 80051; 82310; 82565; 83036; 83735; 84100; 84520; 85025; 88307; 94640; 94760; 94762

== ENCOUNTER → 2018-05-29 | Outpatient (CLI) | payer BC ==
[2018-05-29 13:22] VITALS: BP 148/74; PULSE 69; RESP 18; TEMP 98.2; BMI 47.3
--- NOTE | 2018-05-30 11:15 | P.HPBAR ---
Bariatric H&P - History & Physicial H&P Date: 05/29/18 History & Physicial: Visit/CC: f/u Patient initial contact: Initial weight: 187.697 kg Initial weight in pounds: 413.80 Height: 6 ft Initial BMI: 56.1 Last weight: Current weight: 158.394 kg Current weight in pounds: 349.20 Current BMI: 47.3 [place] body weight (based on NIH guidelines): 80.739 kg Excess body weight loss: 27.3% The patient is a 53 year-old M who presents for Bariatric Assessment. Patient rents today for postoperative follow-up on sleeve gastrectomy. He is doing quite well. Has had some minimal GERD. Past Medical History Past Medical History: Deep Vein Thrombosis (DVT), Hypertension, Pulmonary Embolus (PE), Sleep Apnea/CPAP/BIPAP Additional Past Medical History / Comment(s): CHF (left LEG EDEMA), , DVT and PE secondary to ankle surgery immobilization in 2012;hx cellulitis left leg, yue inguinal hernias History of Any Multi-Drug Resistant Organisms: None Reported Past Surgical History: Heart Catheterization, Orthopedic Surgery Additional Past Surgical History / Comment(s): LEFT ANKLE 2013, COLONOSCOPY, MULTIPLE SKIN BIOPSIES, Past Anesthesia/Blood Transfusion Reactions: Motion Sickness Smoking Status: Never smoker - Past Family History Father Family Medical History: Dementia, Hypertension Additional Family Medical History / Comment(s): April 2016 Mother Family Medical History: Cancer Additional Family Medical History / Comment(s): . Surgical - Exam Vital Signs Temp Pulse Resp BP 98.2 F 69 18 148/74 05/29/18 13:20 05/29/18 13:20 05/29/18 13:20 05/29/18 13:20 - General well developed, no distress - Eyes PERRL - ENT normal pinna - Abdomen Abdomen: soft, non tender, surgical scars (Healing) Bariatric Assessment & Plan Plan: Status post sleeve gastrectomy. Patient is doing quite well. He will follow- up in 2 weeks. Bariatric Checklist Checklist: Plan: Checklist: EGD: 1. Hiatal hernia: 2. H. Pylori: HgbA1c: Vitamin D: Smoking: Never smoker Primary care physician referral: Dr. Reno Psychiatry clearance: Cardiology clearance: Sleep study: Diet journal: VTE risk score: VTE risk level: Rehab needs at discharge:
== END | disposition home or self-care (01) ==
LOC: BARWHC3 12:31
PROVIDERS: ATTEND Surgery
DX: Z48.815 Encounter for surgical aftercare following surgery on the digestive system (principal); E66.01 Morbid (severe) obesity due to excess calories; Z98.84 Bariatric surgery status; Z68.42 Body mass index [BMI] 45.0-49.9, adult
CPT/HCPCS: 97803; 99211

== ENCOUNTER → 2018-06-12 | Outpatient (CLI) | payer BC ==
[2018-06-12 14:14] VITALS: BMI 44.9
[2018-06-12 14:17] VITALS: BP 150/75; PULSE 61; RESP 14; TEMP 98.4
--- NOTE | 2018-06-12 14:52 | P.HPBAR ---
Bariatric H&P - History & Physicial H&P Date: 06/12/18 History & Physicial: Visit/CC: one month f/u sleeve (sx May) Patient initial contact: Initial weight: 187.697 kg Initial weight in pounds: 413.80 Height: 6 ft Initial BMI: 56.1 Last weight: Current weight: 150.321 kg Current weight in pounds: 331.40 Current BMI: 44.9 [place] body weight (based on NIH guidelines): 80.739 kg Excess body weight loss: 34.9% The patient is a 53 year-old M who presents for Bariatric Assessment. Patient presents today for sleeve gastrectomy follow-up. He has some complaints of fatigue. He has had some minimal.. He has had excellent weight loss. Past Medical History Past Medical History: Deep Vein Thrombosis (DVT), Hypertension, Pulmonary Embolus (PE), Sleep Apnea/CPAP/BIPAP Additional Past Medical History / Comment(s): CHF (left LEG EDEMA), , DVT and PE secondary to ankle surgery immobilization in 2012;hx cellulitis left leg, yue inguinal hernias History of Any Multi-Drug Resistant Organisms: None Reported Past Surgical History: Bariatric Surgery, Heart Catheterization, Orthopedic Surgery Additional Past Surgical History / Comment(s): LEFT ANKLE 2012, COLONOSCOPY, MULTIPLE SKIN BIOPSIES, gastric sleeve (May 11, 2018 Dr. Lares) Past Anesthesia/Blood Transfusion Reactions: Motion Sickness Past Psychological History: Anxiety, Depression Additional Psychological History / Comment(s): . Smoking Status: Never smoker Past Alcohol Use History: Occasional Past Drug Use History: None Reported - Past Family History Father Family Medical History: Dementia, Hypertension Additional Family Medical History / Comment(s): April 2016 Mother Family Medical History: Cancer Additional Family Medical History / Comment(s): . Surgical - Exam Vital Signs Temp Pulse Resp BP 98.4 F 61 14 150/75 06/12/18 13:02 06/12/18 13:02 06/12/18 13:02 06/12/18 13:02 - General well developed, no distress - Eyes PERRL - ENT normal pinna - Neck no masses - Cardiovascular Rhythm: regular - Abdomen Abdomen: soft, non tender Bariatric Assessment & Plan Plan: Status post sleeve gastrectomy. Patient is doing quite well. He will follow- up in one month. His GERD is minimal and will be observed. Bariatric Checklist Checklist: Plan: Checklist: EGD: 1. Hiatal hernia: 2. H. Pylori: HgbA1c: Vitamin D: Smoking: Never smoker Primary care physician referral: Dr. Chris Reno ([place]) Psychiatry clearance: Cardiology clearance: Sleep study: Diet journal: VTE risk score: VTE risk level: Rehab needs at discharge:
[2018-06-12 15:02] LABS: ALT 54 U/L (21-72); AST 29 U/L (17-59); Alkaline Phosphatase 88 U/L (38-126); Anion Gap 9 mmol/L; Blood Urea Nitrogen 24 mg/dL (9-20); Calcium 9.7 mg/dL (8.4-10.2); Carbon Dioxide 26 mmol/L (22-30); Chloride 107 mmol/L (98-107); Glucose 91 mg/dL (74-99); Potassium 4.1 mmol/L (3.5-5.1); Sodium 142 mmol/L (137-145); Total Bilirubin 0.8 mg/dL (0.2-1.3); Total Protein 6.7 g/dL (6.3-8.2)
[2018-06-12 15:24] LABS: Anisocytosis Slight; HCT 43.4 % (39.0-53.0); HGB 13.8 gm/dL (13.0-17.5); Hypochromasia Slight; MCH 25.9 pg (25.0-35.0); MCHC 31.9 g/dL (31.0-37.0); MCV 81.2 fL (80.0-100.0); Mean Platelet Volume 6.8; Platelet Count 172 k/uL (150-450); RBC 5.34 m/uL (4.30-5.90); RDW 16.1 % (11.5-15.5); WBC 5.1 k/uL (3.8-10.6)
[2018-06-12 18:26] LABS: Iron Saturation 15.04 (15.00-50.00); Vitamin D 25 Hydroxy 50.4 ng/mL (30.0-100.0)
[2018-06-12 21:16] LABS: Hemoglobin A1C 5.3 % (4.0-6.0)
== END | disposition home or self-care (01) ==
LOC: BARWHC3 12:57
PROVIDERS: ATTEND Surgery
DX: Z48.815 Encounter for surgical aftercare following surgery on the digestive system (principal); F41.9 Anxiety disorder, unspecified; F32.9 Major depressive disorder, single episode, unspecified; I10 Essential (primary) hypertension; D50.8 Other iron deficiency anemias; E44.0 Moderate protein-calorie malnutrition; E55.9 Vitamin D deficiency, unspecified; E66.01 Morbid (severe) obesity due to excess calories; Z68.41 Body mass index [BMI] 40.0-44.9, adult; Z86.718 Personal history of other venous thrombosis and embolism; Z86.711 Personal history of pulmonary embolism; Z98.890 Other specified postprocedural states; Z98.84 Bariatric surgery status
CPT/HCPCS: 36415; 80053; 82306; 82607; 82728; 83036; 83540; 83550; 84425; 84443; 85027; 97803; 99211

== ENCOUNTER → 2018-06-26 | Outpatient (CLI) | payer BC ==
[2018-06-26 13:56] VITALS: BMI 43.0
[2018-06-26 13:58] VITALS: BP 136/81; PULSE 67; RESP 16; TEMP 97.9
--- NOTE | 2018-06-26 17:18 | P.HPBAR ---
Bariatric H&P - History & Physicial H&P Date: 06/26/18 History & Physicial: Visit/CC: sleeve follow-up Patient initial contact: Initial weight: 187.697 kg Initial weight in pounds: 413.80 Height: 6 ft Initial BMI: 56.1 Last weight: Current weight: 144 kg Current weight in pounds: 317.47 Current BMI: 43.0 [place] body weight (based on NIH guidelines): 80.739 kg Excess body weight loss: 40.8% The patient is a 53 year-old M who presents for Bariatric Assessment. Patient is status post sleeve yesterday. Her BMI is 43. He is doing quite well. He's had some mild GERD. He states he has had some lightheaded episodes. He denies any syncope. Past Medical History Past Medical History: Deep Vein Thrombosis (DVT), Hypertension, Pulmonary Embolus (PE), Sleep Apnea/CPAP/BIPAP Additional Past Medical History / Comment(s): CHF (left LEG EDEMA), , DVT and PE secondary to ankle surgery immobilization in 2012;hx cellulitis left leg, yue inguinal hernias History of Any Multi-Drug Resistant Organisms: None Reported Past Surgical History: Bariatric Surgery, Heart Catheterization, Orthopedic Surgery Additional Past Surgical History / Comment(s): LEFT ANKLE 2013, COLONOSCOPY, MULTIPLE SKIN BIOPSIES, gastric sleeve (May 11, 2018 Dr. Lares) Past Anesthesia/Blood Transfusion Reactions: Motion Sickness Past Psychological History: Anxiety, Depression Additional Psychological History / Comment(s): . Smoking Status: Never smoker Past Alcohol Use History: Occasional Past Drug Use History: None Reported - Past Family History Father Family Medical History: Dementia, Hypertension Additional Family Medical History / Comment(s): April 2016 Mother Family Medical History: Cancer Additional Family Medical History / Comment(s): . Surgical - Exam Vital Signs Temp Pulse Resp BP 97.9 F 67 16 136/81 06/26/18 13:57 06/26/18 13:57 06/26/18 13:57 06/26/18 13:57 - General well developed, no distress - Eyes PERRL - Abdomen Abdomen: soft, non tender Bariatric Assessment & Plan Plan: Status post sleeve yesterday. The patient is doing quite well. His GERD is minimal observed. He will follow-up with his primary care doctor regarding his hypertensive medication. Bariatric Checklist Checklist: Plan: Checklist: EGD: 1. Hiatal hernia: 2. H. Pylori: HgbA1c: Vitamin D: Smoking: Never smoker Primary care physician referral: Dr. Chris Reno ([place]) Psychiatry clearance: Cardiology clearance: Sleep study: Diet journal: VTE risk score: VTE risk level: Rehab needs at discharge:
== END | disposition home or self-care (01) ==
LOC: BARWHC3 12:33
PROVIDERS: ATTEND Surgery
DX: Z48.815 Encounter for surgical aftercare following surgery on the digestive system (principal); E66.01 Morbid (severe) obesity due to excess calories; K21.9 Gastro-esophageal reflux disease without esophagitis; Z68.41 Body mass index [BMI] 40.0-44.9, adult; Z98.84 Bariatric surgery status
CPT/HCPCS: 97803; 99211

== ENCOUNTER → 2018-07-17 | Outpatient (CLI) | payer BC ==
[2018-07-17 14:45] VITALS: BP 122/63; PULSE 67; RESP 16; TEMP 98.5
--- NOTE | 2018-07-17 15:19 | P.HPBAR ---
Bariatric H&P - History & Physicial H&P Date: 07/17/18 History & Physicial: Visit/CC: sleeve follow-up Patient initial contact: Initial weight: 187.697 kg Initial weight in pounds: 413.80 Height: Initial BMI: Last weight: 3-14 Current weight: 301 Current weight in pounds: Current BMI: [place] body weight (based on NIH guidelines): Excess body weight loss: The patient is a 53 year-old M who presents for Bariatric Assessment. The patient presents today for sleeve gastrectomy follow-up. He is doing quite well. He's lost in excess 100 pounds since surgery. His hypertension has improved. He states he stopped using his medications. He has had some minimal GERD. Past Medical History Past Medical History: Deep Vein Thrombosis (DVT), Hypertension, Pulmonary Embolus (PE), Sleep Apnea/CPAP/BIPAP Additional Past Medical History / Comment(s): CHF (left LEG EDEMA), , DVT and PE secondary to ankle surgery immobilization in 2012;hx cellulitis left leg, yue inguinal hernias History of Any Multi-Drug Resistant Organisms: None Reported Past Surgical History: Bariatric Surgery, Heart Catheterization, Orthopedic Surgery Additional Past Surgical History / Comment(s): LEFT ANKLE 2012, COLONOSCOPY, MULTIPLE SKIN BIOPSIES, gastric sleeve (May 11, 2018 Dr. Lares) Past Anesthesia/Blood Transfusion Reactions: Motion Sickness Smoking Status: Never smoker - Past Family History Father Family Medical History: Dementia, Hypertension Additional Family Medical History / Comment(s): April 2016 Mother Family Medical History: Cancer Additional Family Medical History / Comment(s): . Surgical - Exam Vital Signs Temp Pulse Resp BP 98.5 F 67 16 122/63 07/17/18 14:24 07/17/18 14:24 07/17/18 14:24 07/17/18 14:24 - General well developed, no distress - Eyes PERRL - ENT normal pinna - Neck no masses - Respiratory normal expansion - Abdomen Abdomen: soft, non tender Bariatric Assessment & Plan Plan: Status post post-sleeve gastrectomy. Patient is doing quite well. His hypertension is resolved. He will follow-up in 4 weeks. Bariatric Checklist Checklist: Plan: Checklist: EGD: 1. Hiatal hernia: 2. H. Pylori: HgbA1c: Vitamin D: Smoking: Never smoker Primary care physician referral: Dr. Chris Reno ([place]) Psychiatry clearance: Cardiology clearance: Sleep study: Diet journal: VTE risk score: VTE risk level: Rehab needs at discharge:
== END | disposition home or self-care (01) ==
LOC: BARWHC3 13:13
PROVIDERS: ATTEND Surgery
DX: Z48.815 Encounter for surgical aftercare following surgery on the digestive system (principal); Z98.84 Bariatric surgery status; Z98.890 Other specified postprocedural states
CPT/HCPCS: 99211

== ENCOUNTER → 2018-08-14 | Outpatient (CLI) | payer BC ==
[2018-08-14 15:28] VITALS: BMI 38.7
[2018-08-14 15:34] VITALS: BP 142/70; PULSE 63; RESP 16; TEMP 98.3
--- NOTE | 2018-08-15 12:29 | P.HPBAR ---
Bariatric H&P - History & Physicial H&P Date: 08/14/18 History & Physicial: Visit/CC: sleeve follow-up Patient initial contact: Initial weight: 187.697 kg Initial weight in pounds: 413.80 Height: 6 ft Initial BMI: 56.1 Last weight: Current weight: 129.637 kg Current weight in pounds: 285.80 Current BMI: 38.7 [place] body weight (based on NIH guidelines): 80.739 kg Excess body weight loss: 54.2% The patient is a 53 year-old M who presents for Bariatric Assessment. Patient presents today for sleeve gastrectomy follow-up. He has had excellent weight loss. He denies a significant complaints. He's had some mild GERD. Past Medical History Past Medical History: Deep Vein Thrombosis (DVT), Hypertension, Pulmonary Embolus (PE), Sleep Apnea/CPAP/BIPAP Additional Past Medical History / Comment(s): CHF (left LEG EDEMA), , DVT and PE secondary to ankle surgery immobilization in 2012;hx cellulitis left leg, yue inguinal hernias History of Any Multi-Drug Resistant Organisms: None Reported Past Surgical History: Bariatric Surgery, Heart Catheterization, Orthopedic Surgery Additional Past Surgical History / Comment(s): LEFT ANKLE 2012, COLONOSCOPY, MULTIPLE SKIN BIOPSIES, gastric sleeve (May 11, 2018 Dr. Lares) Past Anesthesia/Blood Transfusion Reactions: Motion Sickness Past Psychological History: Anxiety, Depression Additional Psychological History / Comment(s): . Smoking Status: Never smoker Past Alcohol Use History: Occasional Past Drug Use History: None Reported - Past Family History Father Family Medical History: Dementia, Hypertension Additional Family Medical History / Comment(s): April 2016 Mother Family Medical History: Cancer Additional Family Medical History / Comment(s): . Surgical - Exam Vital Signs Temp Pulse Resp BP 98.3 F 63 16 142/70 08/14/18 15:32 08/14/18 15:32 08/14/18 15:32 08/14/18 15:32 - General well developed, no distress - Eyes PERRL - ENT normal pinna - Neck no masses - Respiratory normal expansion - Cardiovascular Rhythm: regular - Abdomen Abdomen: soft, non tender Bariatric Assessment & Plan Plan: Status post sleeve gastrectomy. Patient's doing quite well. His GERD is minimal will be observed. He'll follow-up in 4 weeks. Bariatric Checklist Checklist: Plan: Checklist: EGD: 1. Hiatal hernia: 2. H. Pylori: HgbA1c: Vitamin D: Smoking: Never smoker Primary care physician referral: Dr. Chris Reno ([place]) Psychiatry clearance: Cardiology clearance: Sleep study: Diet journal: VTE risk score: VTE risk level: Rehab needs at discharge:
== END | disposition home or self-care (01) ==
LOC: BARWHC3 13:43
PROVIDERS: ATTEND Surgery
DX: Z48.815 Encounter for surgical aftercare following surgery on the digestive system (principal); Z98.84 Bariatric surgery status; Z98.890 Other specified postprocedural states
CPT/HCPCS: 97803; 99211

== ENCOUNTER → 2018-12-25 | Outpatient (CLI) | payer BC ==
[2018-12-25 14:02] VITALS: BP 161/86; PULSE 56; RESP 16; TEMP 98; BMI 35.5
[2018-12-25 15:21] LABS: HGB 14.5 gm/dL (13.0-17.5); MCH 26.9 pg (25.0-35.0); MCHC 32.1 g/dL (31.0-37.0); MCV 83.7 fL (80.0-100.0); Mean Platelet Volume 6.5; Platelet Count 180 k/uL (150-450); RBC 5.38 m/uL (4.30-5.90); RDW 14.9 % (11.5-15.5); WBC 5.6 k/uL (3.8-10.6)
[2018-12-25 23:35] LABS: Albumin 4.2 g/dL (3.80-4.90); Albumin/Globulin Ratio 2.21 (1.60-3.17); Anion Gap 6.1 mmol/L (4.00-12.00); Calcium 9.1 mg/dL (8.7-10.3); Carbon Dioxide 30.9 mmol/L (21.6-31.8); Globulin 1.9 g/dL (1.6-3.3); Magnesium 1.9 mg/dL (1.5-2.4); Potassium 3.9 mmol/L (3.5-5.5); Total Bilirubin 0.7 mg/dL (0.3-1.2); Total Protein 6.1 g/dL (6.2-8.2)
[2018-12-25 23:38] LABS: Vitamin D 25 Hydroxy 34.4 ng/mL (30.0-100.0)
[2018-12-25 23:39] LABS: Folate, Serum 19.1 ng/mL
[2018-12-28 07:43] LABS: Vitamin A 59 ug/dL (38-106)
[2018-12-29 14:57] LABS: Vit B1(Thiamine) 85 ug/L (38-122)
--- NOTE | 2019-01-01 16:14 | P.HPBAR ---
Bariatric H&P - History & Physicial H&P Date: 12/25/18 History & Physicial: Visit/CC: sleeve follow-up Patient initial contact: Initial weight: 187.697 kg Initial weight in pounds: 413.80 Height: 6 ft Initial BMI: 56.1 Last weight: Current weight: 118.841 kg Current weight in pounds: 262.00 Current BMI: 35.5 [place] body weight (based on NIH guidelines): 80.739 kg Excess body weight loss: 64.3% The patient is a 53 year-old M who presents for Bariatric Assessment. Patient presents today for sleeve gastrectomy follow-up. He's had issues hypertension and minimal GERD. She denies any nausea or vomiting. Past Medical History Past Medical History: Deep Vein Thrombosis (DVT), Hypertension, Pulmonary Embolus (PE), Sleep Apnea/CPAP/BIPAP Additional Past Medical History / Comment(s): CHF (left LEG EDEMA), , DVT and PE secondary to ankle surgery immobilization in 2012;hx cellulitis left leg, yue inguinal hernias History of Any Multi-Drug Resistant Organisms: None Reported Past Surgical History: Bariatric Surgery, Heart Catheterization, Orthopedic Surgery Additional Past Surgical History / Comment(s): LEFT ANKLE 2012, COLONOSCOPY, MULTIPLE SKIN BIOPSIES, gastric sleeve (May 11, 2018 Dr. Lares) Past Anesthesia/Blood Transfusion Reactions: Motion Sickness Past Psychological History: Anxiety, Depression Additional Psychological History / Comment(s): . Smoking Status: Never smoker Past Alcohol Use History: Occasional Past Drug Use History: None Reported - Past Family History Father Family Medical History: Dementia, Hypertension Additional Family Medical History / Comment(s): April 2016 Mother Family Medical History: Cancer Additional Family Medical History / Comment(s): . Surgical - Exam Vital Signs Temp Pulse Resp BP 98 F 56 L 16 161/86 12/25/18 14:00 12/25/18 14:00 12/25/18 14:00 12/25/18 14:00 - General well developed, well nourished, no distress - Eyes PERRL - ENT normal pinna - Neck no masses - Respiratory normal expansion - Cardiovascular Rhythm: regular - Abdomen Abdomen: soft, non tender Results - Labs 12/25/18 14:41 12/25/18 14:41 Bariatric Assessment & Plan Plan: Status post sleeve yesterday. Patient's hypertension will be addressed by his family doctor. His GERD is minimal will be observed. He'll follow-up in 4 weeks. Bariatric Checklist Checklist: Plan: Checklist: EGD: 1. Hiatal hernia: 2. H. Pylori: HgbA1c: Vitamin D: Smoking: Never smoker Primary care physician referral: Dr. Chris Reno ([place]) Psychiatry clearance: Cardiology clearance: Sleep study: Diet journal: VTE risk score: VTE risk level: Rehab needs at discharge:
== END ==
LOC: BARWHC3 13:59
PROVIDERS: ATTEND Surgery Plastic and Reconstructive Surgery
DX: Z48.815 Encounter for surgical aftercare following surgery on the digestive system (principal); I10 Essential (primary) hypertension; K21.9 Gastro-esophageal reflux disease without esophagitis; E66.01 Morbid (severe) obesity due to excess calories; E44.0 Moderate protein-calorie malnutrition; E55.9 Vitamin D deficiency, unspecified; Z68.35 Body mass index [BMI] 35.0-35.9, adult; Z98.84 Bariatric surgery status
CPT/HCPCS: 36415; 80053; 82306; 82607; 82746; 83735; 84134; 84425; 84443; 84590; 85027; 97803; 99211

== ENCOUNTER → 2019-05-21 | Outpatient (CLI) | payer BC ==
[2019-05-21 14:25] VITALS: RESP 16; BMI 34.7
[2019-05-21 15:39] LABS: Anisocytosis Slight; HGB 14.9 gm/dL (13.0-17.5); MCH 27.3 pg (25.0-35.0); MCV 82.7 fL (80.0-100.0); Mean Platelet Volume 7.1; Platelet Count 169 k/uL (150-450); RBC 5.44 m/uL (4.30-5.90); WBC 6.2 k/uL (3.8-10.6)
[2019-05-22 01:26] LABS: African American GFR (CKD) 112.6 (60.0-200.0); Albumin 4.1 g/dL (3.80-4.90); Albumin/Globulin Ratio 2.16 (1.60-3.17); Anion Gap 9.3 mmol/L (4.00-12.00); BUN/Creat Ratio 31.11 Ratio (12.00-20.00); Carbon Dioxide 28.7 mmol/L (21.6-31.8); Globulin 1.9 g/dL (1.6-3.3); Potassium 3.6 mmol/L (3.5-5.5); Total Bilirubin 0.5 mg/dL (0.3-1.2)
[2019-05-22 02:27] LABS: Folate, Serum >24.0 ng/mL
== END | disposition home or self-care (01) ==
LOC: BARWHC3 13:48
PROVIDERS: ATTEND Surgery
DX: E66.01 Morbid (severe) obesity due to excess calories (principal); E44.0 Moderate protein-calorie malnutrition; Z68.34 Body mass index [BMI] 34.0-34.9, adult
CPT/HCPCS: 36415; 80053; 82306; 82607; 82746; 84134; 84443; 85027; 97803; 99211

== ENCOUNTER → 2020-09-11 | Outpatient (CLI) | payer OTHER ==
[2020-09-11 15:34] LABS: Basophils % (A) 0 %; Eosinophils # (A) 0.1 k/uL (0-0.7); Eosinophils % (A) 2 %; HCT 46.4 % (39.0-53.0); HGB 14.8 gm/dL (13.0-17.5); Lymphocytes # (A) 1.6 k/uL (1.0-4.8); Lymphocytes % (A) 27 %; MCH 27.6 pg (25.0-35.0); MCHC 31.9 g/dL (31.0-37.0); MCV 86.6 fL (80.0-100.0); Mean Platelet Volume 6.6; Monocytes # (A) 0.3 k/uL (0-1.0); Monocytes % (A) 6 %; Neutrophils # (A) 3.6 k/uL (1.3-7.7); Neutrophils % (A) 63 %; Platelet Count 167 k/uL (150-450); RBC 5.36 m/uL (4.30-5.90); RDW 14.1 % (11.5-15.5); WBC 5.8 k/uL (3.8-10.6)
== END | disposition home or self-care (01) ==
LOC: LABWHC1 14:33
PROVIDERS: ATTEND Surgery
DX: K40.30 Unilateral inguinal hernia, with obstruction, without gangrene, not specified as recurrent (principal)
CPT/HCPCS: 36415; 85025

== ENCOUNTER → 2020-09-17 | Day surgery (SDC) | payer OTHER ==
[2020-09-15 15:53] VITALS: BMI 35.9
[~2020-09-17] MED LIST changes: +ACETAMINOPHEN TAB 500 MG TAB PO ONE; +BUPIVACAINE (PF) 0.25% 30 ML VIAL SQ ONE; -DEXAMETHASONE SOD PHOSPHATE 10 MG/ML 1 ML VIAL IV ONE; +DEXAMETHASONE SOD PHOSPHATE 4 MG/ML 1 ML VIAL IV ONE; -ENOXAPARIN 40 MG/0.4 ML SYRINGE SQ ONE; +GLYCOPYRROLATE 0.2 MG/ML 2 ML VIAL ONE; +HEPARIN SODIUM,PORCINE 5,000 UNIT/ML 1 ML VIAL SQ ONE; +HYDROmorphone (PF) 1 MG/ML ONE; +KETOROLAC 15 MG/ML 1 ML VIAL ONE; +LACTATED RINGERS 1,000 ML IV SCH; +LIDOCAINE 1% (10MG/ML) FOR IV START INTRADERMA PRN; +LIDOCAINE 1% INJ 10MG/ML (20 ML MDV) ONE; +MIDAZOLAM 2 MG/2 ML VIAL ONE; +NEOSTIGMINE 1 MG/ML 10 ML VIAL ONE; +PROPOFOL 10 MG/ML 20 ML VIAL IV ONE; +ROCURONIUM 10 MG/ML (10 ML VIAL) IV ONE; +SUCCINYLCHOLINE CHLORIDE 100 MG/5 ML SYR IV ONE; +ceFAZolin 3 GM in SODIUM CHLORIDE 0.9% 100 ML IVPB ONE; +fentaNYL (PF) 50 MCG/ML 2 ML AMP ONE
[2020-09-17 07:17] LABS: Glucose,Whole Blood 97 mg/dL (75-99)
--- NOTE | 2020-09-17 08:19 | P.GSHP ---
History of Present Illness H&P Date: 09/17/20 Chief Complaint: Cholelithiasis This 55-year-old male who presents today for laparoscopically stenting. Patient with recurrent quadrant pain. Ultrasound shows evidence of cholelithiasis. Past Medical History Past Medical History: Heart Failure, Deep Vein Thrombosis (DVT), Hypertension, Osteoarthritis (OA), Pulmonary Embolus (PE), Sleep Apnea/CPAP/BIPAP Additional Past Medical History / Comment(s): DVT and PE secondary to ankle surgery,hx cellulitis left leg, gallstones, diet control diabetic, left inguinal hernia History of Any Multi-Drug Resistant Organisms: None Reported Past Surgical History: Bariatric Surgery, Heart Catheterization, Orthopedic Surgery Additional Past Surgical History / Comment(s): LEFT ANKLE SURGERY, COLONOSCOPY, MULTIPLE SKIN BIOPSIES, gastric sleeve Past Anesthesia/Blood Transfusion Reactions: No Reported Reaction Smoking Status: Never smoker - Past Family History Father Family Medical History: Dementia, Hypertension Additional Family Medical History / Comment(s): April 2016 Mother Family Medical History: Cancer Additional Family Medical History / Comment(s): skin cancer Medications and Allergies Home Medications Medication Instructions Recorded Confirmed Type Aspirin [Adult Low Dose Aspirin EC] 81 mg PO BID 07/15/16 09/17/20 History FLUoxetine HCL [PROzac] 40 mg PO BID 09/15/20 09/17/20 History Metoprolol Tartrate [Lopressor] 50 mg PO BID 09/15/20 09/17/20 History Omeprazole [PriLOSEC] 20 mg PO AC-BRKFST 09/15/20 09/17/20 History lisinopriL 40 mg PO BID 09/15/20 09/17/20 History Allergies Allergy/AdvReac Type Severity Reaction Status Date / Time hydrocodone bitartrate Allergy Anaphylaxis Verified 09/17/20 07:07 [From [place]] codeine AdvReac Confusion Verified 09/17/20 07:07 Surgical - Exam Vital Signs Temp Pulse Resp BP Pulse Ox 98.5 F 98 16 170/89 97 09/17/20 07:04 09/17/20 07:04 09/17/20 07:04 09/17/20 07:04 09/17/20 07:04 - General well developed, well nourished, no distress - Eyes PERRL - ENT normal pinna - Neck no masses - Respiratory normal expansion - Cardiovascular Rhythm: regular - Abdomen Abdomen: soft, non tender Assessment and Plan Assessment: Lithiasis. We'll perform laparoscopic cholecystectomy.
--- NOTE | 2020-09-17 08:20 | P.OP ---
Date of Procedure: 09/17/20 Preoperative Diagnosis: Cholelithiasis Postoperative Diagnosis: Cholelithiasis Procedure(s) Performed: Laparoscopic cholecystectomy Anesthesia: JENNI Surgeon: Orlando Lares Estimated Blood Loss (ml): 5 Pathology: other (Gallbladder) Condition: stable Disposition: PACU Description of Procedure: The patient was placed on the operating table. The patient received a general endotracheal tube anesthesia. The patients abdomen was prepped and draped in the usual sterile fashion. Through an infraumbilical stab incision, the fascia of the anterior abdominal wall was grasped with a pair of Kochers and then the Veress needle was placed in the peritoneal cavity. Position of the Veress needle was confirmed with positive drop test. The abdomen was then insufflated. After adequate insufflation, the 10 mm trocar was placed in the peritoneal cavity. Following this the laparoscope was placed in the peritoneal cavity. The patient was placed in the head-up, right side up position and then a 5 mm trocar was placed in the right lateral and right subcostal position under direct visualization. A 8 mm trocar was placed in the epigastric position. The gallbladder was grasped in the fundus and infundibulum. Traction on the gallbladder was placed in the lateral and the cephalad positions. The triangle of [place] was visualized.. The cystic duct was bluntly dissected until the union of the cystic duct and common bile duct was seen. A critical view of safety was achieved. The cystic duct was then divided and sealed with the Harmonic scissors. A PDS Endoloop was then placed throughout the cystic duct stump. The cystic artery divided and sealed with the Harmonic scissors. The gallbladder was then removed from the liver bed using Harmonic scissors. The gallbladder was then extracted through the epigastric port site. Operative field was checked for any bleeding spots and Harmonic scissors was used to coagulate the liver bed. The abdomen was irrigated. The trocars were removed. The skin was closed using interrupted 3-0 Vicryl suture. Dermabond dressing were applied. The patient tolerated the procedure well.
[2020-09-17 08:33] VITALS: TEMP 98.1
[2020-09-17] MEDS: HYDROmorphone 0.5 MG/0.5 ML SYRINGE IVP ONE ×2 (08:44→08:53)
[2020-09-17 10:28] VITALS: BP 149/79; PULSE 64; RESP 18
== END ==
LOC: OR 06:24
PROVIDERS: ATTEND Surgery
DX: K81.1 Chronic cholecystitis (principal); I11.0 Hypertensive heart disease with heart failure; I50.9 Heart failure, unspecified; M19.90 Unspecified osteoarthritis, unspecified site; E11.9 Type 2 diabetes mellitus without complications; K40.90 Unilateral inguinal hernia, without obstruction or gangrene, not specified as recurrent; G47.33 Obstructive sleep apnea (adult) (pediatric); F41.9 Anxiety disorder, unspecified; F32.9 Major depressive disorder, single episode, unspecified; Z86.718 Personal history of other venous thrombosis and embolism; Z86.711 Personal history of pulmonary embolism; Z99.89 Dependence on other enabling machines and devices; Z98.890 Other specified postprocedural states; Z87.2 Personal history of diseases of the skin and subcutaneous tissue; Z98.84 Bariatric surgery status; Z79.82 Long term (current) use of aspirin; Z79.899 Other long term (current) drug therapy; Z88.5 Allergy status to narcotic agent; Z88.6 Allergy status to analgesic agent; Z81.8 Family history of other mental and behavioral disorders; Z82.49 Family history of ischemic heart disease and other diseases of the circulatory system; Z80.8 Family history of malignant neoplasm of other organs or systems
CPT/HCPCS: 88304; 47562; J2250; J1644; J1100; J2710; J0690; J2405; J2001; J3010; J1170 ×2; J1885; J0330; J2704

== ENCOUNTER → 2020-09-26 | Day surgery (SDC) | payer OTHER ==
[2020-09-24 10:07] VITALS: BMI 35.9
[~2020-09-26] MED LIST changes: +KETAMINE 10 MG/ML 20 ML VIAL ONE; +LACTATED RINGERS 1,000 ML IV ONE; +LIDOCAINE 1% (10MG/ML) FOR IV START INTRADERMA ONE; -LIDOCAINE 1% (10MG/ML) FOR IV START INTRADERMA PRN; +MIDAZOLAM 2 MG/2 ML VIAL IV PRN; +SCOPOLAMINE 1.5MG/72HR PATCH TRANSDERM ONE; +fentaNYL (PF) 50 MCG/ML 2 ML AMP IV PRN
[2020-09-26 09:04] LABS: Glucose,Whole Blood 83 mg/dL (75-99)
--- NOTE | 2020-09-26 10:09 | P.GSHP ---
History of Present Illness H&P Date: 09/26/20 Chief Complaint: Left inguinal hernia This a 55 male who presents today for laparoscopic robotic-assisted repair of left inguinal hernia. Past Medical History Past Medical History: Heart Failure, Deep Vein Thrombosis (DVT), Hypertension, Osteoarthritis (OA), Pulmonary Embolus (PE), Sleep Apnea/CPAP/BIPAP Additional Past Medical History / Comment(s): DVT and PE secondary to ankle surgery,hx cellulitis left leg, gallstones, diet control diabetic, left inguinal hernia History of Any Multi-Drug Resistant Organisms: None Reported Past Surgical History: Bariatric Surgery, Cholecystectomy, Heart Catheterization, Orthopedic Surgery Additional Past Surgical History / Comment(s): LEFT ANKLE SURGERY, COLONOSCOPY, MULTIPLE SKIN BIOPSIES, gastric sleeve Past Anesthesia/Blood Transfusion Reactions: No Reported Reaction Smoking Status: Never smoker - Past Family History Father Family Medical History: Dementia, Hypertension Additional Family Medical History / Comment(s): April 2016 Mother Family Medical History: Cancer Additional Family Medical History / Comment(s): skin cancer Medications and Allergies Home Medications Medication Instructions Recorded Confirmed Type Aspirin [Adult Low Dose Aspirin EC] 81 mg PO BID 07/15/16 09/26/20 History FLUoxetine HCL [PROzac] 40 mg PO BID 09/15/20 09/26/20 History Metoprolol Tartrate [Lopressor] 50 mg PO BID 09/15/20 09/26/20 History Omeprazole [PriLOSEC] 20 mg PO AC-BRKFST 09/15/20 09/26/20 History lisinopriL 40 mg PO BID 09/15/20 09/26/20 History Acetaminophen Tab [Tylenol] 650 mg PO Q6H #30 tab 09/17/20 09/26/20 Rx Ibuprofen [Motrin] 600 mg PO Q6HR PRN #40 tab 09/17/20 09/26/20 Rx oxyCODONE HCL [OxyIR] 5 mg PO Q4H PRN 3 Days #18 tab 09/17/20 09/26/20 Rx Allergies Allergy/AdvReac Type Severity Reaction Status Date / Time hydrocodone bitartrate Allergy Anaphylaxis Verified 09/26/20 09:08 [From [place]] codeine AdvReac Confusion Verified 09/26/20 09:08 Surgical - Exam Vital Signs Temp Pulse Resp BP Pulse Ox 97.8 F 62 16 157/89 99 09/26/20 08:59 09/26/20 08:59 09/26/20 08:59 09/26/20 08:59 09/26/20 08:59 - General well developed, well nourished, no distress - Eyes PERRL - ENT normal pinna - Neck no masses - Respiratory normal expansion - Cardiovascular Rhythm: regular - Abdomen Abdomen: soft, non tender Hernia: inguinal (Left inguinal) Assessment and Plan Assessment: Left inguinal hernia. We'll perform laparoscopic robotic-assisted repair.
[2020-09-26 12:09] VITALS: TEMP 97.5
[2020-09-26 13:44] VITALS: RESP 16
[2020-09-26 13:46] VITALS: BP 148/79; PULSE 66
--- NOTE | 2020-11-14 13:25 | P.OP ---
Date of Procedure: 09/26/20 Preoperative Diagnosis: Left inguinal hernia Postoperative Diagnosis: Bilateral inguinal hernia Procedure(s) Performed: Laparoscopic robotic-assisted repair of bilateral inguinal hernia Anesthesia: JENNI Surgeon: Orlando Lares Estimated Blood Loss (ml): 5 Pathology: none sent Condition: stable Disposition: PACU Description of Procedure: The patient's placed on the operating table in the supine position. The patient received general anesthesia. The patient's abdomen was prepped and draped in usual sterile fashion. The skin was anesthetized 1% local Xylocaine at the incision sites. Using an 11 blade a skin incision was made at the umbilicus. The fascia was grasped with a [place] and then the peritoneal cavity was entered with the Veress needle. Position of the Veress needle was confirmed with a positive drop test. After adequate insufflation a 5 mm trocar was placed into the peritoneal cavity. The Laparoscope was placed the peritoneal cavity. And a robotic 8 mm trocar was placed in the right lateral position and then another 8 mm robotic trochars placed in the left lateral position. The original 5 mm trocar was exchanged for a 12 mm trocar. The patient was placed in reverse Trendelenburg and then the patient was docked to the robot. Next the peritoneum over top of the right inguinal hernia was incised and then using blunt and sharp dissection and electrocautery the hernia sac was dissected free from the floor of the inguinal canal. The hernia sac was completely reduced into the peritoneal cavity. And then using the Pro staff toxicologist mesh the hernia was repaired. The peritoneum was then sutured with 20V lock suture. Next the peritoneum over top of the left inguinal hernia was incised and then using blunt and sharp dissection and electrocautery the hernia sac was dissected free from the floor of the inguinal canal. The hernia sac was completely reduced into the peritoneal cavity. And then using the Pro staff toxicologist mesh the hernia was repaired. The peritoneum was then sutured with 20V lock suture. The patient was then undocked the robot. The needle was withdrawn from the peritoneal cavity. The umbilical trocar site was closed with 0 Ethibond suture. The skin was closed interrupted 3-0 Monocryl suture. Dermabond dressing was applied. Patient was sent to recovery in stable condition.
== END | disposition home or self-care (01) ==
LOC: OR 08:10
PROVIDERS: ATTEND Surgery
DX: K40.20 Bilateral inguinal hernia, without obstruction or gangrene, not specified as recurrent (principal); I11.0 Hypertensive heart disease with heart failure; I50.9 Heart failure, unspecified; M19.90 Unspecified osteoarthritis, unspecified site; G47.33 Obstructive sleep apnea (adult) (pediatric); E11.9 Type 2 diabetes mellitus without complications; K08.89 Other specified disorders of teeth and supporting structures; Z86.718 Personal history of other venous thrombosis and embolism; Z86.711 Personal history of pulmonary embolism; Z99.89 Dependence on other enabling machines and devices; Z87.2 Personal history of diseases of the skin and subcutaneous tissue; Z87.19 Personal history of other diseases of the digestive system; Z98.84 Bariatric surgery status; Z90.49 Acquired absence of other specified parts of digestive tract; Z98.890 Other specified postprocedural states; Z79.82 Long term (current) use of aspirin; Z79.899 Other long term (current) drug therapy; Z79.1 Long term (current) use of non-steroidal anti-inflammatories (NSAID); Z79.891 Long term (current) use of opiate analgesic; Z88.5 Allergy status to narcotic agent; Z81.8 Family history of other mental and behavioral disorders; Z82.49 Family history of ischemic heart disease and other diseases of the circulatory system; Z80.8 Family history of malignant neoplasm of other organs or systems
CPT/HCPCS: 49650; S2900

== ENCOUNTER → 2021-10-08 | Outpatient (CLI) | payer OTHER ==
--- NOTE | 2021-10-09 06:58 | CT ---
EXAMINATION TYPE: CT abdomen pelvis w con DATE OF EXAM: 10/08/2021 COMPARISON: None. HISTORY: LLQ pain CT DLP: 2774.7 mGycm, Automated Exposure Control for Dose Reduction was Utilized. CONTRAST: CT scan of the abdomen and pelvis is performed with oral and with IV Contrast, patient injected with 100 mL of Isovue 300. FINDINGS: LUNG BASES: No significant abnormality is appreciated. LIVER/GB: Cholecystectomy clips. PANCREAS: No significant abnormality is seen. SPLEEN: No significant abnormality is seen. ADRENALS: No significant abnormality is seen. KIDNEYS: There is 2.2 cm low density partially exophytic cyst anteriorly in the upper to mid pole of the left kidney. Hounsfield units slightly greater than simple fluid. Follow-up advised. Symmetric co rtical medullary uptake and excretion without hydronephrosis seen bilaterally BOWEL: Oral contrast reaches proximal transverse colon level. No suspicious small or large bowel dila tation. Normal-appearing appendix from cecum. A few diverticula in the sigmoid colon. No CT evidence for acute diverticulitis. Surgical sutures from gastric sleeve procedure. PROSTATE/SEMINAL VESICLES: No gross abnormality seen. LYMPH NODES: No greater than 1cm abdominal or pelvic lymph nodes are appreciated. OSSEOUS STRUCTURES: Mild height loss superior L1 endplate [id number] disc space narrowing and s purring L3-L4 level. OTHER: Moderate to large sized fat-containing right inguinal hernia. IMPRESSION: 1. A few distal colonic diverticula, no convincing CT evidence for acute diverticulitis. No acute fin dings are evident. 2. Nonspecific partially exophytic 2.2 cm heterogeneous low-density lesion anteriorly upper pole of t he left kidney, cannot exclude cystic neoplasm. Further investigation with ultrasound and/or multipha sic contrast enhanced MRI is advised.
== END | disposition home or self-care (01) ==
LOC: RADCTMAIN 14:58
PROVIDERS: ATTEND Surgery
DX: K57.33 Diverticulitis of large intestine without perforation or abscess with bleeding (principal); N28.9 Disorder of kidney and ureter, unspecified
CPT/HCPCS: 74177; Q9967

== ENCOUNTER → 2021-11-03 | Outpatient (CLI) | payer OTHER ==
--- NOTE | 2021-11-03 12:58 | US ---
EXAMINATION TYPE: US kidneys/renal and bladder DATE OF EXAM: 11/03/2021 COMPARISON: CT 10/08/2021 CLINICAL HISTORY: 56-year-old male N28.1 left renal cyst. TECHNIQUE: Multiple sonographic images of the kidneys and bladder are obtained. FINDINGS: EXAM MEASUREMENTS: Right Kidney: 12.8 x 5.7 x 5.6 cm Left Kidney: 12.8 x 4.7 x 6.5 cm No hydronephrosis on either side. Right Kidney: Tiny Lower pole cyst cortical = 0.7 x 0.7 x 0.7 cm Left Kidney: Upper pole cyst = 2.9 x 2.5 x 2.2 cm with posterior through transmission. Bladder: Not distended, not well seen Bilateral Jets not seen IMPRESSION: 1. No hydronephrosis. 2. The 2.9 cm cortical lesion of the left kidney has a cystic appearance on ultrasound. Given the int ermediate attenuation on patient's recent CT, a six-month follow-up ultrasound is recommended as a pr ecautionary measure.
== END | disposition home or self-care (01) ==
LOC: RADUSWWP 12:17
PROVIDERS: ATTEND Surgery
DX: N28.1 Cyst of kidney, acquired (principal)
CPT/HCPCS: 76770

== ENCOUNTER → 2022-01-14 | Outpatient (CLI) | payer OTHER ==
[2022-01-14 12:13] LABS: Appearance,Urine Cloudy (Clear); Bilirubin,Urine Negative (Negative); Blood,Urine Negative (Negative); Calcium Oxalate Crystals,Urine Moderate /hpf; Color,Urine Yellow; Glucose,Urine (UA) Negative (Negative); Ketones,Urine Negative (Negative); Leukocyte Esterase,Urine Negative (Negative); Mucus,Urine Rare /hpf; Nitrite,Urine Negative (Negative); PH, Urine 5.5 (5.0-8.0); Protein,Urine Trace (Negative); Specific Gravity,Urine 1.034 (1.001-1.035); Urobilinogen,Urine <2.0 mg/dL (<2.0); WBC,Urine 2 /hpf (0-5)
--- NOTE | 2022-01-14 13:45 | XR ---
EXAMINATION TYPE: XR chest 2V DATE OF EXAM: 01/14/2022 COMPARISON: None HISTORY: Preop TECHNIQUE: Frontal and lateral views of the chest are obtained. FINDINGS: There is no focal air space opacity, pleural effusion, or pneumothorax seen. The cardiac silhouette size is within normal limits. The osseous structures are intact. IMPRESSION: No acute cardiopulmonary process.
[2022-01-14 15:07] LABS: Basophils # (A) 0.02 X 10*3/uL (0.00-0.10); Basophils % (A) 0.4 %; Eosinophils # (A) 0.13 X 10*3/uL (0.04-0.35); Eosinophils % (A) 2.9 %; HCT 44.5 % (39.6-50.0); HGB 14.7 g/dL (13.0-17.0); Immature Grans, Automated 0.2 %; Lymphocytes # (A) 1.16 X 10*3/uL (0.90-5.00); Lymphocytes % (A) 25.9 %; MCH 27.6 pg (27.0-32.0); MCV 83.5 fL (80.0-97.0); Mean Platelet Volume 9.5 fL (9.5-12.2); Monocytes # (A) 0.26 X 10*3/uL (0.20-1.00); Monocytes % (A) 5.8 %; NRBC Per 100 WBC 0 /100 WBCS (0.0-0.0); Neutrophils % (A) 64.8 %; Platelet Count 172 X 10*3/uL (140-440); RBC 5.33 X 10*6/uL (4.40-5.60); RDW 13.6 % (11.5-14.5); WBC 4.48 X 10*3/uL (4.50-10.00)
[2022-01-14 15:16] LABS: African American GFR (CKD) 116.6 (60.0-200.0); BUN/Creat Ratio 23.88 Ratio (12.00-20.00); Blood Urea Nitrogen 19.1 mg/dL (9.0-27.0); Calcium 8.9 mg/dL (8.7-10.3); Non-African American GFR(CKD) 100.6 (60.0-200.0); Potassium 3.6 mmol/L (3.5-5.5)
== END | disposition home or self-care (01) ==
LOC: LABPAT 09:26
PROVIDERS: ATTEND Urology
DX: Z01.812 Encounter for preprocedural laboratory examination (principal); D41.02 Neoplasm of uncertain behavior of left kidney
CPT/HCPCS: 71046; 80048; 81001; 85025; 87086; 93005

== ENCOUNTER 2022-01-21 06:41 | Observation (INO) | payer OTHER ==
--- NOTE | 2022-01-15 14:07 | P.HPIHPCON ---
History of Present Illness H&P Date: 01/15/22 this is a 56-year-old male with history of 2.2 cm left upper pole cystic mass. 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 Option of continued surveillance versus excision was discussed in detail. Discussed the risk and benefit of each approach. Discussed his a 50% chance this is benign pathology. At this time he declined observation and wanted to proceed with excision. Discussed with him the option of robotic partial nephrectomy. Discussed the risk which includes but not limited to bleeding, infection, life-threatening hemorrhage, converting to a radical nephrectomy, injury to nearby organs which includes but not limited to diaphragm, spleen, pancreas and bowel. Discussed also risk from anesthesia which includes but not limited to heart attack, stroke, blood clots and even loss of life. He understood all the risk and agreed to proceed with a robotic- assisted laparoscopic partial nephrectomy Consent for Procedure: I have explained the operation/procedure to the patient, including the risks, benefits, side effects, alternative therapies (including not receiving the proposed treatment or service), the likelihood of the patient achieving his/her goals, and potential recuperation problems for the procedure/sedation/analgesia, as well as any blood products, if indicated. I also explained to the patient the risks, benefits and side effects of the alternatives, as well as the risks related to not receiving the proposed procedure, care, treatment, or services. Past Medical History Past Medical History: Heart Failure, Deep Vein Thrombosis (DVT), Hypertension, Osteoarthritis (OA), Pulmonary Embolus (PE), Sleep Apnea/CPAP/BIPAP Additional Past Medical History / Comment(s): DVT and PE secondary to ankle surgery,hx cellulitis left leg, gallstones, diet control diabetic, left inguinal hernia History of Any Multi-Drug Resistant Organisms: None Reported Past Surgical History: Bariatric Surgery, Heart Catheterization, Orthopedic Surgery Additional Past Surgical History / Comment(s): LEFT ANKLE SURGERY, COLONOSCOPY, MULTIPLE SKIN BIOPSIES, gastric sleeve Past Anesthesia/Blood Transfusion Reactions: No Reported Reaction Smoking Status: Never smoker - Past Family History Father Family Medical History: Dementia, Hypertension Additional Family Medical History / Comment(s): April 2016 Mother Family Medical History: Cancer Additional Family Medical History / Comment(s): skin cancer Medications and Allergies Home Medications Medication Instructions Recorded Confirmed Type Aspirin [Adult Low Dose Aspirin EC] 81 mg PO BID 07/15/16 09/26/20 History FLUoxetine HCL [PROzac] 40 mg PO BID 09/15/20 09/26/20 History Metoprolol Tartrate [Lopressor] 50 mg PO BID 09/15/20 09/26/20 History Omeprazole [PriLOSEC] 20 mg PO AC-BRKFST 09/15/20 09/26/20 History lisinopriL 40 mg PO BID 09/15/20 09/26/20 History Acetaminophen Tab [Tylenol] 650 mg PO Q6H #30 tab 09/17/20 09/26/20 Rx Ibuprofen [Motrin] 600 mg PO Q6HR PRN #40 tab 09/17/20 09/26/20 Rx oxyCODONE HCL [OxyIR] 5 mg PO Q4H PRN 3 Days #18 tab 09/17/20 09/26/20 Rx Acetaminophen Tab [Tylenol] 650 mg PO Q6H #30 tab 09/26/20 Rx Docusate [Colace] 100 mg PO BID #20 capsule 09/26/20 Rx Ibuprofen [Motrin] 600 mg PO Q6HR PRN #40 tab 09/26/20 Rx oxyCODONE HCL [OxyIR] 5 mg PO Q4H PRN 3 Days #18 tab 09/26/20 Rx Allergies Allergy/AdvReac Type Severity Reaction Status Date / Time hydrocodone bitartrate Allergy Anaphylaxis Verified 09/26/20 09:08 [From [place]] codeine AdvReac Confusion Verified 09/26/20 09:08 Surgical - Exam - General well developed, well nourished, no distress - Eyes PERRL, normal ocular movement - ENT normal nares, normal mucosa - Respiratory normal expansion, normal respiratory effort - Abdomen Abdomen: soft, non tender - Psychiatric oriented to time, oriented to person, no oriented to place Assessment and Plan Assessment: -OR for Left robotic-assisted laparoscopic partial nephrectomy
[2022-01-20 11:29] VITALS: BMI 36.6
[~2022-01-21 06:41] MED LIST changes: -ACETAMINOPHEN TAB 500 MG TAB PO ONE; -BUPIVACAINE (PF) 0.25% 30 ML VIAL SQ ONE; -DEXAMETHASONE SOD PHOSPHATE 4 MG/ML 1 ML VIAL IV ONE; -GLYCOPYRROLATE 0.2 MG/ML 2 ML VIAL ONE; -HEPARIN SODIUM,PORCINE 5,000 UNIT/ML 1 ML VIAL SQ ONE; +HEPARIN SODIUM,PORCINE/PF 5,000 UNIT/0.5 ML SYRINGE SQ PRN; -HYDROmorphone (PF) 1 MG/ML ONE; -KETAMINE 10 MG/ML 20 ML VIAL ONE; -KETOROLAC 15 MG/ML 1 ML VIAL ONE; -LACTATED RINGERS 1,000 ML IV ONE; -LACTATED RINGERS 1,000 ML IV SCH; -LIDOCAINE 1% (10MG/ML) FOR IV START INTRADERMA ONE; -LIDOCAINE 1% INJ 10MG/ML (20 ML MDV) ONE; -MIDAZOLAM 2 MG/2 ML VIAL IV PRN; -MIDAZOLAM 2 MG/2 ML VIAL ONE; -NEOSTIGMINE 1 MG/ML 10 ML VIAL ONE; -ONDANSETRON 4 MG/2 ML VIAL IVP ONE; -PROPOFOL 10 MG/ML 20 ML VIAL IV ONE; -ROCURONIUM 10 MG/ML (10 ML VIAL) IV ONE; -SCOPOLAMINE 1.5MG/72HR PATCH TRANSDERM ONE; -SUCCINYLCHOLINE CHLORIDE 100 MG/5 ML SYR IV ONE; -ceFAZolin 3 GM in SODIUM CHLORIDE 0.9% 100 ML IVPB ONE; -fentaNYL (PF) 50 MCG/ML 2 ML AMP IV PRN; -fentaNYL (PF) 50 MCG/ML 2 ML AMP ONE
[2022-01-21] MEDS ORDERED: LIDOCAINE 1% (10MG/ML) FOR IV START INTRADERMA PRN (07:05)
[2022-01-21] MEDS ORDERED: ONDANSETRON 4 MG/2 ML VIAL IVP ONE (07:05)
[2022-01-21] MEDS ORDERED: DEXAMETHASONE SOD PHOSPHATE 4 MG/ML 1 ML VIAL IV ONE (07:05)
[2022-01-21] MEDS: LACTATED RINGERS 1,000 ML IV SCH (07:16)
[2022-01-21 07:25] LABS: Glucose,Whole Blood 98 mg/dL (75-99)
[2022-01-21] MEDS ORDERED: fentaNYL (PF) 50 MCG/ML 2 ML AMP IVP ONE (07:48)
[2022-01-21] MEDS ORDERED: MIDAZOLAM 2 MG/2 ML VIAL IVP ONE (07:48)
[2022-01-21] MEDS ORDERED: ePHEDrine 50 MG/ML 1 ML VIAL ONE (08:55)
[2022-01-21] MEDS ORDERED: SUCCINYLCHOLINE CHLORIDE 100 MG/5 ML SYR IV ONE (08:55)
[2022-01-21] MEDS ORDERED: NEOSTIGMINE 1 MG/ML 10 ML VIAL ONE (08:55)
[2022-01-21] MEDS ORDERED: fentaNYL (PF) 50 MCG/ML 2 ML AMP ONE (08:55)
[2022-01-21] MEDS ORDERED: HYDROmorphone (PF) 1 MG/ML ONE (08:55)
[2022-01-21] MEDS ORDERED: ROPIVACAINE 5 MG/ML 30 ML VIAL ONE (08:55)
[2022-01-21] MEDS ORDERED: MANNITOL 25% 12.5 GM/50 ML VIAL ONE (08:55)
[2022-01-21] MEDS ORDERED: LIDOCAINE 1% INJ 10MG/ML (20 ML MDV) ONE (08:55)
[2022-01-21] MEDS ORDERED: SODIUM CHLORIDE 0.9% (PF) 10 ML VIAL ONE (08:55)
[2022-01-21] MEDS ORDERED: ROCURONIUM 10 MG/ML (5 ML VIAL) IV ONE (08:55)
[2022-01-21] MEDS ORDERED: WATER FOR INJECTION, STERILE 10 ML VIAL IV ONE (08:55)
[2022-01-21] MEDS ORDERED: PROPOFOL 10 MG/ML 20 ML VIAL IV ONE (08:55)
[2022-01-21] MEDS ORDERED: GLYCOPYRROLATE 0.2 MG/ML 2 ML VIAL ONE (08:55)
[2022-01-21] MEDS ORDERED: MORPHINE SULFATE 4 MG/ML SYRINGE IVP PRN (09:08)
--- NOTE | 2022-01-21 09:18 | P.ANPRN ---
Procedure Note - Anesthesia - Nerve Block Performed Bilateral Erector Spinae Single Time Out Performed: Yes ([id number]) Date of Procedure: 01/21/22 Procedure Start Time: 07:49 Procedure Stop Time: 07:56 Location of Patient: PreOp Indication: Acute Post-Operative Pain, Requested by Surgeon Specifically requested for management of pain by : Riley Ponce Sedation Type: Sedate with meaningful contact maintained Preparation: Sterile Prep Position: Prone Catheter: None Needle Types: Pajunk Needle Gauge: 21 Ultrasound used to visualize needle placement: Yes Ultrasound used to observe medication spread: Yes Injectate: 0.5% Ropivacaine (see comment for volume) (15cc + 15cc nacl pf each side) Blood Aspirated: No Pain Paresthesia on Injection Noted: No Resistance on Injection: Normal Image Stored and Saved: Yes Events: Uneventful and Well Tolerated
[2022-01-21] MEDS ORDERED: BUPIVACAIN-EPI 0.25%-1:200,000 30 ML VIAL SQ ONE ×2 (09:28→12:00)
[2022-01-21] MEDS ORDERED: LACTATED RINGERS 1,000 ML IV ONE ×2 (10:53)
--- NOTE | 2022-01-21 12:09 | P.OP ---
Date of Procedure: 01/21/22 Preoperative Diagnosis: left renal mass Postoperative Diagnosis: same Procedure(s) Performed: robotic assisted laproscopic left partial nephrectomy and extensive lysis of adhesions Anesthesia: JENNI Surgeon: Riley Ponce Organ Pipe Finisher #1: Sampson Bower Estimated Blood Loss (ml): 250 Pathology: other (left renal mass) Condition: stable Disposition: PACU Indications for Procedure: this is a 56-year-old male with history of 2.2 cm left upper pole cystic mass. 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 Option of continued surveillance versus excision was discussed in detail. Discussed the risk and benefit of each approach. Discussed his a 50% chance this is benign pathology. At this time he declined observation and wanted to proceed with excision. Discussed with him th e option of robotic partial nephrectomy. Discussed the risk which includes but not limited to bleeding, infection, life-threatening hemorrhage, converting to a radical nephrectomy, injury to nearby organs which includes but not limited to diaphragm, spleen, pancreas and bowel. Discussed also risk from anesthesia which includes but not limited to heart attack, stroke, blood clots and even loss of life. He understood all the risk and agreed to proceed with a robotic- assisted laparoscopic partial nephrectomy Operative Findings: left upper pole renal mass near the hilum Description of Procedure: The patient was taken to the operating room . General anesthesia was induced. He was prepped and draped in sterile fashion, He was placed in modified flank position . All pressure points were padded. The abdominal insufflation was achieved with the Veress needle. A 8 mm camera port was placed. Robotic trocars and administrative assistant coordinator ports were placed under direct vision. The robot was docked into place. Patient had extensive adhesions along the left upper lower quadrant, lysis of adhesion was performed sharply, with a 45 minutes were spent lysing adhesions. The colon was mobilized medially by incising along the white line of Toldt. Next the spleen and the pancrease were mobilized. Once the bowel, spleen and pancreas were mobilized. At this time the gonadal vessel was visualized. The ureter and gonadal vessel was retracted anteriorly off the psoas muscle. Dissection proceeded cranially towards the renal hilum. The renal vein was visualized and dissected, next to renal artery was identified, this was dissected in preparation for clamping. A the upper pole branch was also dissected, given its proximal location to the tumor. Next in order to better visualize the adrenal vein was clipped, and divided. Next tumor was identified and the fat dissected off the tumor. Given the close proximity of the upper pole vein and artery to the tumor both of them were clipped using robotic clips. Next 2 bulldogs clamps were placed on the artery. Given the close tumor location to the hilum the tumor was enucleated. Next the defect was closed in 2 layers using 2-0 and 3-0 V lock using the sliding clip technique. Next a clamp was removed, total clamp time was 26 minutes The robot was then de-docked and the specimen was then removed by extending the administrative assistant coordinator port. The fascia was closed using 2-0 Vicryl in [id number] fashion. Skin was closed with subcuticular sutures and dermabond. The patient was awoken from general anesthesia in stable condition. Please refer to the final pathology report for final diagnosis.
[2022-01-21] MEDS: HYDROmorphone 0.5 MG/0.5 ML SYRINGE IVP PRN ×3 (12:25→13:00)
[2022-01-21] MEDS ORDERED: KETOROLAC 15 MG/ML 1 ML VIAL IVP ONE (12:40)
[2022-01-21] MEDS: D5-0.45% NACL WITH KCL 20MEQ/L 1,000 ML IV SCH (14:25)
[2022-01-21 16:42] LABS: Basophils % (A) 0 %; Eosinophils % (A) 0 %; HCT 44.3 % (39.0-53.0); HGB 14.5 gm/dL (13.0-17.5); Lymphocytes # (A) 0.5 k/uL (1.0-4.8); Lymphocytes % (A) 6 %; MCH 28.1 pg (25.0-35.0); MCHC 32.8 g/dL (31.0-37.0); MCV 85.6 fL (80.0-100.0); Mean Platelet Volume 7.5; Monocytes # (A) 0.2 k/uL (0-1.0); Monocytes % (A) 3 %; Neutrophils # (A) 7.7 k/uL (1.3-7.7); Neutrophils % (A) 90 %; Platelet Count 178 k/uL (150-450); RBC 5.17 m/uL (4.30-5.90); RDW 14.5 % (11.5-15.5); WBC 8.5 k/uL (3.8-10.6)
[2022-01-21 16:44] LABS: African American GFR (CKD) >90 (>60 ml/min/1.73 sqM); Anion Gap 8 mmol/L; Blood Urea Nitrogen 22 mg/dL (9-20); Calcium 8.6 mg/dL (8.4-10.2); Carbon Dioxide 26 mmol/L (22-30); Chloride 106 mmol/L (98-107); Glucose 122 mg/dL (74-99); Non-African American GFR(CKD) >90 (>60 ml/min/1.73 sqM); Sodium 140 mmol/L (137-145)
[2022-01-21] MEDS: hydrALAZINE HCL 50 MG TAB PO SCH (19:43)
[2022-01-21] MEDS: DULoxetine HCL 60 MG CAPSULE.DR PO SCH (19:43)
[2022-01-21] MEDS: busPIRone HCl 10 MG TAB PO SCH (19:44)
[2022-01-21] MEDS: TAMSULOSIN 0.4 MG CAP.ER.24H PO SCH (19:44)
[2022-01-21] MEDS: METOPROLOL TARTRATE 50 MG TAB PO SCH (19:44)
[2022-01-21] MEDS: lisinopriL 20 MG TAB PO SCH (19:44)
[2022-01-21] MEDS: KETOROLAC 15 MG/ML 1 ML VIAL IVP PRN (20:57)
[2022-01-22] MEDS: D5-0.45% NACL WITH KCL 20MEQ/L 1,000 ML IV SCH ×3 (05:44→13:31)
[2022-01-22] MEDS: KETOROLAC 15 MG/ML 1 ML VIAL IVP PRN ×3 (05:58→17:05)
[2022-01-22 06:57] LABS: Glucose,Whole Blood 109 mg/dL (75-99)
[2022-01-22] MEDS: LACTATED RINGERS 1,000 ML IV SCH (07:00)
[2022-01-22] MEDS: hydrALAZINE HCL 50 MG TAB PO SCH ×2 (07:15→21:20)
[2022-01-22] MEDS: PANTOPRAZOLE 40 MG TABLET PO SCH (07:15)
[2022-01-22] MEDS: METOPROLOL TARTRATE 50 MG TAB PO SCH ×2 (07:15→21:19)
[2022-01-22] MEDS: busPIRone HCl 10 MG TAB PO SCH ×2 (07:15→21:20)
[2022-01-22] MEDS: lisinopriL 20 MG TAB PO SCH ×2 (07:15→21:20)
--- NOTE | 2022-01-22 08:21 | P.PN ---
Subjective Progress Note Date: 01/22/22 The patient underwent a robotic-assisted operative laparoscopic partial left nephrectomy yesterday. He has done well overnight. His vital signs are stable. His urine output is good. The MEGHANA drainage is appropriate. His abdomen was soft. He feels well. I will discontinue his Tapia. I will slow his IV rate down. If he does well he'll be discharged home probably tomorrow. Objective - Vital Signs Vital signs: Vital Signs Temp 97.5 F L 01/22/22 00:45 Pulse 74 01/22/22 00:45 Resp 20 01/22/22 00:45 BP 124/68 01/22/22 00:45 Pulse Ox 97 01/22/22 00:45 Intake & Output 01/21/22 01/22/22 01/22/22 18:59 06:59 18:59 Intake Total 2400 Output Total 1065 300 Balance 1335 -300 Weight 126 kg Intake: IV 2200 Oral 200 Output: Drainage 100 Left FLANK 100 Urine 715 300 Estimated Blood Loss 250 Other: Voiding Method Indwelling Catheter - Labs CBC & Chem 7: 01/21/22 15:46 01/21/22 15:46 Labs: Abnormal Lab Results - Last 24 Hours (Table) 01/21/22 01/21/22 01/22/22 Range/Units 15:46 15:46 06:55 Lymphocytes # 0.5 L (1.0-4.8) k/uL BUN 22 H (9-20) mg/dL Glucose 122 H (74-99) mg/dL POC Glucose (mg/dL) 109 H (75-99) mg/dL
[2022-01-22 09:10] LABS: Basophils # (A) 0.02 X 10*3/uL (0.00-0.10); Basophils % (A) 0.3 %; Eosinophils # (A) 0.04 X 10*3/uL (0.04-0.35); Eosinophils % (A) 0.5 %; HCT 41.7 % (39.6-50.0); HGB 13.2 g/dL (13.0-17.0); Immature Grans, Automated 0.3 %; Lymphocytes # (A) 1.73 X 10*3/uL (0.90-5.00); Lymphocytes % (A) 23.2 %; MCH 27.6 pg (27.0-32.0); MCHC 31.7 g/dL (32.0-37.0); MCV 87.1 fL (80.0-97.0); Mean Platelet Volume 9.8 fL (9.5-12.2); Monocytes # (A) 0.62 X 10*3/uL (0.20-1.00); Monocytes % (A) 8.3 %; NRBC Per 100 WBC 0 /100 WBCS (0.0-0.0); Neutrophils # (A) 5.03 X 10*3/uL (1.80-7.70); Neutrophils % (A) 67.4 %; Platelet Count 163 X 10*3/uL (140-440); RBC 4.79 X 10*6/uL (4.40-5.60); RDW 14.2 % (11.5-14.5); WBC 7.46 X 10*3/uL (4.50-10.00)
[2022-01-22 09:22] LABS: African American GFR (CKD) 97.8 (60.0-200.0); Anion Gap 10.2 mmol/L (10.00-18.00); BUN/Creat Ratio 23.6 Ratio (12.00-20.00); Blood Urea Nitrogen 23.6 mg/dL (9.0-27.0); Calcium 8.7 mg/dL (8.7-10.3); Carbon Dioxide 27.8 mmol/L (20.0-27.5); Non-African American GFR(CKD) 84.4 (60.0-200.0); Potassium 4.1 mmol/L (3.5-5.5)
[2022-01-22 11:13] LABS: Glucose,Whole Blood 109 mg/dL (75-99)
[2022-01-22 16:52] LABS: Glucose,Whole Blood 93 mg/dL (75-99)
[2022-01-22 20:43] LABS: Glucose,Whole Blood 95 mg/dL (75-99)
[2022-01-22] MEDS: TAMSULOSIN 0.4 MG CAP.ER.24H PO SCH (21:20)
[2022-01-22] MEDS: DULoxetine HCL 60 MG CAPSULE.DR PO SCH (21:21)
[2022-01-22] MEDS: ACETAMINOPHEN TAB 325 MG TAB PO PRN (21:21)
[2022-01-23 06:56] LABS: Glucose,Whole Blood 95 mg/dL (75-99)
[2022-01-23] MEDS: PANTOPRAZOLE 40 MG TABLET PO SCH (07:40)
[2022-01-23] MEDS: METOPROLOL TARTRATE 50 MG TAB PO SCH (07:40)
[2022-01-23] MEDS: busPIRone HCl 10 MG TAB PO SCH (07:40)
[2022-01-23] MEDS: lisinopriL 20 MG TAB PO SCH (07:41)
[2022-01-23] MEDS: hydrALAZINE HCL 50 MG TAB PO SCH (07:41)
[2022-01-23] MEDS: ACETAMINOPHEN TAB 325 MG TAB PO PRN (07:47)
[2022-01-23] MEDS: LACTATED RINGERS 1,000 ML IV SCH (08:08)
[2022-01-23] MEDS: D5-0.45% NACL WITH KCL 20MEQ/L 1,000 ML IV SCH (08:09)
[2022-01-23 08:33] VITALS: RESP 18
--- NOTE | 2022-01-23 10:11 | P.DS ---
Providers Date of admission: 01/22/22 11:31 Attending physician: Riley Ponce MD Primary care physician: [facility] Course: 56-year-old gentleman with a left renal mass who underwent a partial left nephrectomy robotically by on 01/21/2022. He has done well postoperatively. On the first postoperative day his diet was advanced. The catheter was removed and he voided without difficulty. This morning the MEGHANA drain was removed as the output is minimal. He continues to do well. His vital signs are stable. He is afebrile. Urine output is good and is clear. He is ready for discharge home on a regular diet limited activity. He'll be given a prescription toward well. He'll follow-up in the office next week. Postoperative instructions given. Pathology report is pending upon discharge. Patient Condition at Discharge: Good Plan - Discharge Summary Discharge Rx Participant: No New Discharge Prescriptions: New Ketorolac [Toradol] 10 mg PO Q6HR PRN #10 tab PRN Reason: Pain Control No Action Aspirin [Adult Low Dose Aspirin EC] 81 mg PO BID Omeprazole [PriLOSEC] 20 mg PO AC-BRKFST lisinopriL 40 mg PO BID Metoprolol Tartrate [Lopressor] 100 mg PO BID busPIRone HCl [Buspar] 10 mg PO BID DULoxetine HCL [Cymbalta] 60 mg PO HS Multivitamins, Thera [Multivitamin (formulary)] 1 tab PO DAILY hydrALAZINE HCL [Apresoline] 50 mg PO BID Tamsulosin [Flomax] 0.4 mg PO HS Acetaminophen Tab [Tylenol] 650 mg PO Q6H PRN PRN Reason: Pain Discharge Medication List Aspirin [Adult Low Dose Aspirin EC] 81 mg PO BID 07/15/16 [History] Metoprolol Tartrate [Lopressor] 100 mg PO BID 09/15/20 [History] Omeprazole [PriLOSEC] 20 mg PO AC-BRKFST 09/15/20 [History] lisinopriL 40 mg PO BID 09/15/20 [History] Acetaminophen Tab [Tylenol] 650 mg PO Q6H PRN 01/20/22 [History] DULoxetine HCL [Cymbalta] 60 mg PO HS 01/20/22 [History] Multivitamins, Thera [Multivitamin (formulary)] 1 tab PO DAILY 01/20/22 [History] Tamsulosin [Flomax] 0.4 mg PO HS 01/20/22 [History] busPIRone HCl [Buspar] 10 mg PO BID 01/20/22 [History] hydrALAZINE HCL [Apresoline] 50 mg PO BID 01/20/22 [History] Ketorolac [Toradol] 10 mg PO Q6HR PRN #10 tab 01/23/22 [Rx] Follow up Appointment(s)/Referral(s): Jj Galaviz MD [STAFF PHYSICIAN] - 01/28/22 Discharge Disposition: HOME SELF-CARE
[2022-01-23 11:22] LABS: Glucose,Whole Blood 95 mg/dL (75-99)
[2022-01-23 14:13] VITALS: BP 155/83; PULSE 70; TEMP 98.5
== END 2022-01-23 14:29 | disposition home or self-care (01) ==
LOC: OR 06:41 → 4SSUR 12:56 → OR 01-22 11:09 → 4SSUR 01-22 11:31
PROVIDERS: ADMIT Urology; ATTEND Urology
DX: N28.1 Cyst of kidney, acquired (principal); I11.0 Hypertensive heart disease with heart failure; E11.9 Type 2 diabetes mellitus without complications; M19.90 Unspecified osteoarthritis, unspecified site; K40.90 Unilateral inguinal hernia, without obstruction or gangrene, not specified as recurrent; G47.30 Sleep apnea, unspecified; Z79.82 Long term (current) use of aspirin; Z79.899 Other long term (current) drug therapy; Z88.5 Allergy status to narcotic agent; Z98.84 Bariatric surgery status; Z86.711 Personal history of pulmonary embolism; Z87.19 Personal history of other diseases of the digestive system; Z86.718 Personal history of other venous thrombosis and embolism; Z82.0 Family history of epilepsy and other diseases of the nervous system; Z82.49 Family history of ischemic heart disease and other diseases of the circulatory system; Z80.8 Family history of malignant neoplasm of other organs or systems
CPT/HCPCS: 50543; S2900; 36415; 64999; 80048; 85025; 86850; 86900; 86901; 88307; 88341; 88342

== ENCOUNTER → 2022-05-05 | Outpatient (CLI) | payer OTHER ==
--- NOTE | 2022-05-05 13:20 | US ---
EXAMINATION TYPE: US kidneys/renal and bladder DATE OF EXAM: 05/05/2022 COMPARISON: US 2020 CLINICAL HISTORY: N28.1 Left kidney cyst. History of left kidney hemorrhagic cyst that was removed 2 months ago EXAM MEASUREMENTS: Right Kidney: 11.4 x 5.8 x 6.0 cm Left Kidney: 11.4 x 6.0 x 5.8 cm Right Kidney: No hydronephrosis or masses seen Left Kidney: No hydronephrosis or masses seen Bladder: not fully distended Bilateral Jets seen: no IMPRESSION: 1. Unremarkable renal ultrasound. No recurrent cyst is identified.
== END | disposition home or self-care (01) ==
LOC: RADUSWWP 09:57
PROVIDERS: ATTEND Surgery
DX: N28.1 Cyst of kidney, acquired (principal)
CPT/HCPCS: 76770

== ENCOUNTER 2025-04-09 08:49 | Day surgery (SDC) | payer MEDICARE ==
[~2025-04-09 08:49] MED LIST changes: -HEPARIN SODIUM,PORCINE/PF 5,000 UNIT/0.5 ML SYRINGE SQ PRN; +LIDOCAINE 1% (10MG/ML) FOR IV START INTRADERMA PRN; +TRANEXAMIC 1,000 MG/100ML-NACL 1,000 MG in SALINE 1 100ML.BAG IVPB PRN; +fentaNYL (PF) 50 MCG/ML 2 ML AMP IVP PRN
[2025-04-09] MEDS: ACETAMINOPHEN TAB 500 MG TAB PO PRN (10:29)
[2025-04-09] MEDS: GABAPENTIN 300 MG CAP PO PRN (10:29)
[2025-04-09] MEDS: MELOXICAM 7.5 MG TAB PO PRN (10:29)
[2025-04-09] MEDS: DEXAMETHASONE SOD PHOSPHATE 4 MG/ML 1 ML VIAL IV ONE (10:33)
[2025-04-09] MEDS: ONDANSETRON 4 MG/2 ML VIAL IVP ONE (10:33)
[2025-04-09] MEDS: LACTATED RINGERS 1,000 ML IV SCH (10:34)
[2025-04-09] MEDS: MIDAZOLAM 2 MG/2 ML VIAL IV PRN (10:45)
[2025-04-09] MEDS: IV FLUID CONTINUATION 1,000 ML IV ONE (10:52)
[2025-04-09] MEDS ORDERED: ONDANSETRON 4 MG/2 ML VIAL IVP PRN (11:13)
[2025-04-09] MEDS ORDERED: MAGNESIUM HYDROXIDE 2,400 MG/30 ML CUP PO PRN (11:13)
[2025-04-09] MEDS ORDERED: NALOXONE 0.4 MG/ML 1 ML VIAL IV PRN (11:13)
[2025-04-09] MEDS ORDERED: HYDROmorphone 0.5 MG/0.5 ML SYRINGE IVP PRN ×2 (11:13)
[2025-04-09] MEDS ORDERED: traMADol 50 MG TAB PO PRN (11:15)
[2025-04-09] MEDS ORDERED: PROPOFOL 10 MG/ML 20 ML VIAL IV ONE (11:33)
[2025-04-09] MEDS ORDERED: ROPIVACAINE 5 MG/ML 30 ML VIAL ONE (11:33)
[2025-04-09] MEDS ORDERED: DEXAMETHASONE SOD PHOSPHATE 4 MG/ML 1 ML VIAL ONE (11:33)
[2025-04-09] MEDS ORDERED: TRANEXAMIC 1,000 MG/100ML-NACL PREMIX BAG ONE (11:33)
[2025-04-09] MEDS ORDERED: PHENYLEPHRINE-0.9% NACL SYG 1,000 MCG/10 ML SYRINGE ONE (11:33)
[2025-04-09] MEDS ORDERED: fentaNYL (PF) 50 MCG/ML 2 ML AMP ONE (11:33)
[2025-04-09] MEDS ORDERED: MIDAZOLAM 2 MG/2 ML VIAL ONE (11:33)
[2025-04-09] MEDS: ceFAZolin 3 GM in SODIUM CHLORIDE 0.9% 100 ML IVPB PRN (11:38)
[2025-04-09] MEDS: ROPIVACAINE 5 MG/ML 30 ML VIAL MISCELLANE ONE (12:25)
[2025-04-09] MEDS: LACTATED RINGERS 1,000 ML IV ONE (13:00)
--- NOTE | 2025-04-09 13:34 | P.OP ---
Date of Procedure: 04/09/25 Preoperative Diagnosis: Severe osteoarthritis right hip Postoperative Diagnosis: Severe osteoarthritis right hip Procedure(s) Performed: Right total hip arthroplasty with a direct anterior approach Implants: [employer] Polarstem standard size 7 with a collar [employer] R3, 3 hole hemispherical acetabular shell, 56 mm [employer] Reflection 6.5 mm cancellus screw, 20 mm 2 [employer] R3, XLPE 20 acetabular liner [employer] Oxinium femoral head 36 mm, -3 All components were press-fit. The articulation is Oxinium on polyethylene. Anesthesia: spinal Surgeon: Douglas Pinto Swimming Pool Maintenance #1: Tressa Melissa Estimated Blood Loss (ml): 900 Pathology: none sent Condition: stable Disposition: PACU Indications for Procedure: After failure of conservative treatment we discussed the surgical and nonsurgical treatment options at length. Patient wishes to proceed with a total hip arthroplasty with a direct anterior approach. Complications specific to this procedure were discussed at length, including but not limited to infection, leg length discrepancy, dislocation, nerve injury, and fracture. Covid-19 was also discussed at length with the patient, and they are aware of the current policies and procedures. The patient was given the option of delaying surgery, but they elect to proceed knowing these risks. Patient is aware of all these complications and informed consent was obtained Operative Findings: The operative findings are consistent with severe osteoarthritis of the right hip Description of Procedure: The patient was seen and evaluated in the preoperative area and the consent was reviewed. The operative site was marked with a skin marker. The patient verified the procedure and operative site. A JUDIE block was placed by anesthesia in the preoperative area. The patient was then brought to the operating room and given preoperative antibiotics intravenously. 1 g of Tranexamic acid was also given intravenously. A spinal anesthetic was administered by the anesthesia department. The patient was then placed on the Woodson table with the bony prominences well-padded. The hip area was then prepped with a ChloraPrep solution and draped in the usual sterile fashion. A universal timeout was then performed, which confirmed the patient's name, surgical site, ALLERGIES, and procedure being performed on the consent. Next the incision site was located at 1 cm distal and 4 cm lateral to the anterior superior iliac spine. The skin and subcutaneous tissues were sharply incised. Incision was carefully dissected down to the fascia overlying the tensor fascia deana muscle. This fascia was then incised in line with the muscle fibers. Care was taken to stay laterally in order to avoid injuring the lateral femoral cutaneous nerve. Next, using blunt finger dissection, the tensor fascia deana muscle was dissected off its investing fascia. The muscle was then carefully retracted laterally with a cobra retractor over the lateral neck of the femur. Next, the circumflex vessels were identified and cauterized using the Aquamantis device. The anterior hip capsule was then exposed. The capsule was then opened and an inverted T fashion. The retractors were then placed intracapsularly. The retractors were maintained intracapsular throughout the procedure. The proximal femur was then visualized. Fluoroscopic x-rays were then taken in order to evaluate the preoperative leg lengths. A small amount of traction was placed on the leg. The femoral neck was then osteotomized at the appropriate level above the lesser trochanter. A small wedge of bone was then removed from the remaining femoral head. Next, using a corkscrew the femoral head was removed from the acetabulum. On gross visual inspection, the femoral head had complete loss of articular cartilage and multiple periarticular osteophytes. The femoral head was then measured. Attention was then turned to the acetabulum. The acetabulum was exposed and any remaining labrum was excised. Sequential reaming of the acetabulum was performed using fluoroscopic guidance until there was a good bed of bleeding cancellus bone. When the appropriate size was reach ed, a trial was then placed. The position and fit of the trial was checked with fluoroscopy. The trial was then removed. Then, using fluoroscopic guidance, the final implant was impacted at 20 of anteversion and 40 of abduction, and fully seated in the acetabulum. 2 screws were then placed in the acetabulum. Again fluoroscopy was used to check position of the screws. Next, the liner was then impacted, with a 20 elevated liner located in the anterior superior quadrant. Component locking was confirmed. Attention was then directed to the femur. With the aid of the Woodson table, the femur was externally rotated to approximately 130, extended, and adducted under the opposite leg. A side hook was then placed under the proximal femur, and the side hook elevator was used to elevate the proximal femur while releasing the capsule. Retractors were then placed. A capsular release was performed, as well as a release of the conjoined tendon, which afforded excellent visualization of the proximal femur. Next, a box osteotome was used to lateralize the proximal femur. A hand i cutter was then used to locate the femoral canal. Sequential broaching was then performed with appropriate size which afforded excellent fixation in the proximal femur. A trial was then placed with appropriate head and neck, and the hip was gently reduced with the aid of the Woodson table. Fluoroscopy was then used to check position of the components, as well as to evaluate the leg lengths and offset. The leg lengths and offset were measured as closely as possible to ensure stability of the hip. The hip was then gently dislocated and the trials were then removed. Final implants were then impacted and the hip was again reduced. Final fluoroscopic x-rays confirmed that the components were in anatomic position. The leg lengths and offset were measured and were found to coincide with the trial measurements. The hip was also taken through range of motion, and found to be stable. The hip was then copiously irrigated with antibiotic solution with pulsatile lavage. The hip was then irrigated with Irrisept solution. The soft tissues were then injected with a ropivacaine solution. A second dose of 1 g of Tranexamic acid was also given intravenously. The fascia was then closed with 2-0 strata fix suture. The subcutaneous tissue was closed with 3-0 Vicryl. The subcuticular tissue was closed with 3-0 strata fix suture. The skin was then closed with Exofin skin glue. After the glue and dried, and Optifoam silver impregnated dressing was applied. The patient was then transferred to the recovery room in stable condition. The podiatry assistant CANDELARIO Ramirez was required due to the complexity of surgery, and the need for skilled car rental sales assistant for positioning, draping, exposure, retraction, and closure of the wound.
[2025-04-09] MEDS: HYDROmorphone 0.5 MG/0.5 ML SYRINGE IVP PRN (14:26)
--- NOTE | 2025-04-09 15:45 | XR ---
EXAMINATION TYPE: XR Hip Limited RT DATE OF EXAM: 04/09/2025 3:25 PM COMPARISON: None. CLINICAL INDICATION: Male, 60 years old with history of Status post hip surgery, assess surgical kortney givens, pain TECHNIQUE: AP view(s) obtained. FINDINGS: Placement of a right hip prosthesis with Acetabular component. No acute fractures are evident. Soft t issue postsurgical changes evident. IMPRESSION: 1. No acute fracture post right hip replacement. [facility], , 04/09/2025 3:43 PM
--- NOTE | 2025-04-09 15:56 | FL ---
Fluoroscopy INDICATION: Pain FINDINGS: Fluoroscopy time: 53 seconds. Total dose area product (DAP) in uGy*m?, mGy*cm? (or similar): 5.0536 Images obtained: 5. Images document right hip prosthesis placement IMPRESSION: 1. Documentation of fluoroscopy. [facility], , 04/09/2025 3:53 PM
[2025-04-09] MEDS: HYDROmorphone 1 MG/ML 1 ML SYRINGE IVP PRN (18:20)
[2025-04-09] MEDS: droPERidol 2.5 MG/ML VIAL IVP ONE (18:36)
[2025-04-09] MEDS: SENNOSIDES-DOCUSATE SODIUM 1 EACH TAB PO SCH (21:41)
[2025-04-09] MEDS: traMADol 50 MG TAB PO PRN (21:41)
[2025-04-09] MEDS: ceFAZolin 3 GM in SODIUM CHLORIDE 0.9% 100 ML IVPB SCH (21:41)
[2025-04-09] MEDS: SODIUM CHLORIDE 0.9% 1,000 ML IV SCH (21:42)
--- NOTE | 2025-04-09 22:00 | P.CONS ---
History of Present Illness - Reason for Consult Consult date: 04/09/25 Medical management Requesting physician: Riley Ponce - Chief Complaint Right hip pain - History of Present Illness This is a 60-year-old male patient with a past medical history of congestive heart failure, DVT on oral anticoagulation, hypertension, osteoarthritis, history of PE and obstructive sleep apnea . Patient has right severe osteoarthritis of the hip and admitted under Ortho for right total hip arthroplasty . Patient is status postsurgery and no complications postop. His blood pressure is slightly elevated postop which is likely due to pain, but he does have history of hypertension. He does take lisinopril and metoprolol . Past medical history : congestive heart failure, DVT on oral anticoagulation, hypertension, osteoarthritis, history of PE and obstructive sleep apnea Past surgical history : Bariatric surgery, orthopedic surgery, left ankle surgery, multiple skin biopsies, gastric sleeve Social history : No tobacco use, no alcohol use and no recreational drug use Review of system : Positive for right hip pain Physical exam : General: nontoxic, no distress, appears at stated age Derm: warm, dry, intact Head: atraumatic, normocephalic, symmetric Eyes: EOMI, anicteric sclera Mouth: no lip lesion, mucus membranes moist Cardiovascular: S1 S2 reg, no murmur, rubs, or gallops Lungs: CTA bilateral, no rales, no accessory muscle use Abdominal: soft, non-tender to palpataion, no appreciable organomegaly Assessment and plan : - Severe right hip osteoarthritis status post surgery : Surgery is following Will order labs -Essential hypertension : Will continue lisinopril for now May resume metoprolol tomorrow morning -History of DVT and PE : Currently on oral Eliquis 2.5 mg twice daily -History of congestive heart failure : Patient is currently euvolemic CODE STATUS is full code DVT prophylaxis on oral Eliquis Time spent : 35 min Past Medical History Past Medical History: Heart Failure, Deep Vein Thrombosis (DVT), Hypertension, Osteoarthritis (OA), Pulmonary Embolus (PE), Sleep Apnea/CPAP/BIPAP Additional Past Medical History / Comment(s): CHF; DVT and PE secondary to ankle surgery,hx cellulitis left leg, gallstones, no longer diabectic had bariatic surgery, left inguinal hernia , uses cpap History of Any Multi-Drug Resistant Organisms: None Reported Past Surgical History: Bariatric Surgery, Cholecystectomy, Heart Catheterization, Hernia Repair, Orthopedic Surgery Additional Past Surgical History / Comment(s): LEFT ANKLE SURGERY, COLONOSCOPY, MULTIPLE SKIN BIOPSIES, gastric sleeve; 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 Son Past Anesthesia/Blood Transfusion Reactions: No Reported Reaction Additional Past Anesthesia/Blood Transfusion Reaction / Comm: no blood tx hx Past Psychological History: Anxiety, Depression Additional Psychological History / Comment(s): . Smoking Status: Never smoker Past Alcohol Use History: None Reported Additional Past Alcohol Use History / Comment(s): Used to Chew tobacco 30 years ago. Past Drug Use History: None Reported - Past Family History Father Family Medical History: Dementia, Hypertension Additional Family Medical History / Comment(s): April 2016 Mother Family Medical History: Cancer Additional Family Medical History / Comment(s): skin cancer Brother(s) Family Medical History: Cancer Additional Family Medical History / Comment(s): MELENOMA CANCER Medications and Allergies Home Medications Medication Instructions Recorded Confirmed Type Aspirin [Adult Low Dose Aspirin EC] 81 mg PO BID 07/15/16 04/03/25 History Metoprolol Tartrate [Lopressor] 100 mg PO BID 09/15/20 04/03/25 History Omeprazole [PriLOSEC] 20 mg PO AC-BRKFST 09/15/20 04/03/25 History lisinopriL 40 mg PO BID 09/15/20 04/03/25 History Acetaminophen Tab [Tylenol] 650 mg PO Q6H PRN 01/20/22 04/03/25 History DULoxetine HCL [Cymbalta] 60 mg PO BID 01/20/22 04/03/25 History Multivitamins, Thera [Multivitamin 1 tab PO DAILY 01/20/22 04/03/25 History (formulary)] NIFEdipine [Adalat CC] 30 mg PO HS 12/25/24 04/03/25 History lamoTRIgine [Lamotrigine] 150 mg PO HS 04/03/25 04/03/25 History Apixaban [Eliquis] 2.5 mg PO BID 30 Days #60 tab 04/09/25 Rx Sennosides [Senokot] 2 tab PO DAILY PRN #60 tablet 04/09/25 Rx traMADol HCl [Ultram] 1 - 2 tab PO Q6H PRN #28 tab 04/09/25 Rx Allergies Allergy/AdvReac Type Severity Reaction Status Date / Time hydrocodone bitartrate Allergy Anaphylaxis Verified 04/09/25 10:26 [From [facility]] codeine AdvReac Confusion Verified 04/09/25 10:26 Physical Exam Vitals: Vital Signs Temp Pulse Resp BP Pulse Ox 04/09/25 19:28 97.7 F 75 17 149/72 95 04/09/25 18:10 66 20 128/76 95 04/09/25 17:30 63 16 121/75 95 04/09/25 17:00 64 16 170/91 94 L 04/09/25 16:30 63 16 165/82 92 L 04/09/25 16:00 60 16 168/77 94 L 04/09/25 15:21 65 16 144/74 92 L 04/09/25 15:06 61 16 131/60 97 04/09/25 14:51 60 16 111/60 97 04/09/25 14:36 58 L 16 100/63 98 04/09/25 14:21 57 L 16 98/60 99 04/09/25 14:06 58 L 16 98/60 99 04/09/25 13:51 96.8 F L 57 L 14 97/61 94 L 04/09/25 10:51 71 16 121/88 98 04/09/25 10:11 97.8 F 70 16 143/81 97 Intake and Output 04/09/25 04/09/25 04/09/25 06:59 14:59 22:59 Intake Total 1500 520 Output Total 900 Balance 600 520 Intake: IV 1500 450 Intake, IV Titration 70 Amount Sodium Chloride 0.9% 1, 70 000 ml @ 70 mls/hr IV . [id number] REPLACED BY [facility] Rx#:[id number] Output: Estimated Blood Loss 900 Other: Weight 124.738 kg 124.738 kg
[2025-04-09] MEDS: lisinopriL 20 MG TAB PO SCH (23:01)
[2025-04-09 23:38] LABS: Basophils # (A) 0.01 10*3/uL (0.00-0.10); Basophils % (A) 0.1 %; HCT 39.2 % (39.6-50.0); HGB 12.5 g/dL (13.0-17.0); Lymphocytes % (A) 7.1 %; MCHC 31.9 g/dL (32.0-37.0); MCV 81.5 fL (80.0-97.0); Mean Platelet Volume 9.6 fL (9.5-12.2); Monocytes # (A) 0.73 10*3/uL (0.20-1.00); Monocytes % (A) 5.8 %; Neutrophils # (A) 10.93 10*3/uL (1.80-7.70); Neutrophils % (A) 86.6 %; Platelet Count 214 10*3/uL (140-440); RBC 4.81 10*6/uL (4.40-5.60); RDW 14.6 % (11.5-14.5); WBC 12.62 10*3/uL (4.50-10.00)
[2025-04-09 23:57] LABS: African American GFR (CKD) >90 (>60 ml/min/1.73 sqM); Anion Gap 7 mmol/L; Blood Urea Nitrogen 25 mg/dL (9-20); Calcium 8.8 mg/dL (8.4-10.2); Carbon Dioxide 24 mmol/L (22-30); Chloride 106 mmol/L (98-107); Glucose 151 mg/dL (74-99); Non-African American GFR(CKD) >90 (>60 ml/min/1.73 sqM); Potassium 4.3 mmol/L (3.5-5.1); Sodium 137 mmol/L (137-145)
[2025-04-10 08:05] VITALS: BP 149/76; PULSE 81; RESP 16; TEMP 97.4
[2025-04-10 08:09] LABS: Basophils # (A) 0.01 X 10*3/uL (0.00-0.10); Basophils % (A) 0.1 %; Eosinophils # (A) 0 X 10*3/uL (0.04-0.35); Eosinophils % (A) 0 %; HCT 37.2 % (39.6-50.0); HGB 11.3 g/dL (13.0-17.0); Lymphocytes # (A) 1.15 X 10*3/uL (0.90-5.00); MCH 25.2 pg (27.0-32.0); MCHC 30.4 g/dL (32.0-37.0); MCV 82.9 FL (80.0-97.0); Mean Platelet Volume 10.3 FL (9.5-12.2); Monocytes # (A) 0.65 X 10*3/uL (0.20-1.00); Monocytes % (A) 6.8 %; NRBC Per 100 WBC 0 X 10*3/uL (0.00-0.01); Neutrophils # (A) 7.76 X 10*3/uL (1.80-7.70); Neutrophils % (A) 80.8 %; Platelet Count 203 X 10*3/uL (140-440); RBC 4.49 X 10*6/uL (4.40-5.60); RDW 14.8 % (11.5-14.5)
[2025-04-10] MEDS: APIXABAN 2.5 MG TABLET PO SCH (09:28)
[2025-04-10] MEDS: METOPROLOL TARTRATE 50 MG TAB PO SCH (09:30)
--- NOTE | 2025-04-10 11:03 | P.PN ---
Subjective Progress Note Date: 04/10/25 This is a 60-year-old male who is status post right total hip arthroplasty. This is postoperative day #1 and patient is seen and evaluated at bedside today. Patient states that he did well with physical therapy, but ever since sitting up in a chair he developed a headache. Patient states that the pain in his hip is well-controlled. Objective - Vital Signs Vital signs: Vital Signs Temp 97.4 F L 04/10/25 08:00 Pulse 81 04/10/25 08:00 Resp 16 04/10/25 08:00 BP 149/76 04/10/25 08:00 Pulse Ox 99 04/10/25 08:00 FiO2 Intake & Output 04/09/25 04/10/25 04/10/25 18:59 06:59 18:59 Intake Total 2020 Output Total 900 Balance 1120 Weight 124.738 kg Intake: IV 1950 Intake, IV Titration 70 Amount Sodium Chloride 0.9% 1, 70 000 ml @ 70 mls/hr IV . [id number] [facility] Rx#:[id number] Output: Estimated Blood Loss 900 Other: Voiding Method Urinal # Voids 1 - Exam Vital signs are stable. Patient is in no acute distress and is alert and oriented 3. Calf is soft and nontender to palpation. Dressing is clean, dry, and intact. Patient has full foot and ankle motion without pain or difficulty. Sensation intact. Neurovascular status and circulatory status are intact. - Labs CBC & Chem 7: 04/10/25 02:42 04/09/25 23:14 Labs: Abnormal Lab Results - Last 24 Hours (Table) 04/09/25 04/09/25 04/10/25 Range/Units 23:14 23:14 02:42 WBC 12.62 H (4.50-10.00) 10*3/uL Hgb 12.5 L 11.3 L (13.0-17.0) g/dL Hct 39.2 L 37.2 L (39.6-50.0) % MCH 26.0 L 25.2 L (27.0-32.0) pg MCHC 31.9 L 30.4 L (32.0-37.0) g/dL RDW 14.6 H 14.8 H (11.5-14.5) % Immature Gran # 0.05 H (0.00-0.04) 10*3/uL Neutrophils # 10.93 H 7.76 H (1.80-7.70) 10*3/uL Eosinophils # 0.00 L 0 L (0.04-0.35) 10*3/uL BUN 25 H (9-20) mg/dL Glucose 151 H (74-99) mg/dL Assessment and Plan (1) Osteoarthritis of right hip Current Visit: Yes Status: Acute Code(s): M16.11 - UNILATERAL PRIMARY OSTEOARTHRITIS, RIGHT HIP SNOMED Code(s): 295830034458028 (2) S/P total right hip arthroplasty Current Visit: Yes Status: Acute Code(s): Z96.641 - PRESENCE OF RIGHT ARTIFICIAL HIP JOINT SNOMED Code(s): 578722561673 Plan: Continue routine postop care and pain control. Continue anticoagulation with Eliquis. Weightbearing as tolerated with a walker. Leave dressing in place for 7 days. Appreciate input from internal medicine. Consult to anesthesia to rule out spinal headache. Anticipate discharge later today or tomorrow pending clinical course.
--- NOTE | 2025-04-10 11:23 | P.PN ---
Subjective Progress Note Date: 04/10/25 Hospital Course: This is a 60-year-old male patient with a past medical history of congestive h eart failure, DVT on oral anticoagulation, hypertension, osteoarthritis, history of PE and obstructive sleep apnea . Patient has right severe osteoarthritis of the hip and admitted under Ortho for right total hip arthroplasty . Patient is status postsurgery and no complications postop. Seen and examined on 05/01, no acute event overnight, patient did well with physical therapy, postop blood work revealed normal WBC count and hemoglobin down to 11.3, expected in the past., Platelet count normal. Blood pressure this morning 149/76,resumed home medications with metoprolol 100 twice daily, terrence garcia cleared for discharge from IM standpoint, discussed with case management Pertinent positives and negatives as discussed above, a complete review of systems was performed and all other systems are negative. Vitals Signs Reviewed. General: [nontoxic], [no distress], [appears at stated age] Derm: [warm], [dry] Head: [atraumatic], [normocephalic], [symmetric] Eyes: [EOMI], [no lid lag], [anicteric sclera] Mouth: [no lip lesion], [mucus membranes moist] Cardiovascular: [S1S2 reg], [no murmur] Lungs: [CTA bilateral], [no rhonchi, no rales] , [no accessory muscle use] Abdominal: [soft], [ nontender to palpation], [no guarding], [no appreciable organomegaly] Ext: [no gross muscle atrophy], [no edema], [no contractures], right hip postop dressing clean and dry Neuro: [ CN II-XI grossly intact], [no focal neuro deficits] Psych: [Alert], [oriented], [appropriate affect] Assessment and Plan: -Essential hypertension : Continue lisinopril 40 daily, resumed home medications with metoprolol 100 twice daily -History of DVT and PE : Currently on oral Eliquis 2.5 mg twice daily -History of congestive heart failure : Patient is currently euvolemic - Continue home lisinopril, metoprolol, nifedipine as above CODE STATUS is full code DVT prophylaxis on oral Eliquis Objective - Vital Signs Vital signs: Vital Signs Temp 97.4 F L 04/10/25 08:00 Pulse 81 04/10/25 08:00 Resp 16 04/10/25 08:00 BP 149/76 04/10/25 08:00 Pulse Ox 99 04/10/25 08:00 FiO2 Intake & Output 04/09/25 04/10/25 04/10/25 18:59 06:59 18:59 Intake Total 2019 Output Total 900 Balance 1120 Weight 124.738 kg Intake: IV 1950 Intake, IV Titration 70 Amount Sodium Chloride 0.9% 1, 70 000 ml @ 70 mls/hr IV . [id number] [facility] Rx#:[id number] Output: Estimated Blood Loss 900 Other: Voiding Method Urinal # Voids 1 - Labs CBC & Chem 7: 04/10/25 02:42 04/09/25 23:14 Labs: Abnormal Lab Results - Last 24 Hours (Table) 04/09/25 04/09/25 04/10/25 Range/Units 23:14 23:14 02:42 WBC 12.62 H (4.50-10.00) 10*3/uL Hgb 12.5 L 11.3 L (13.0-17.0) g/dL Hct 39.2 L 37.2 L (39.6-50.0) % MCH 26.0 L 25.2 L (27.0-32.0) pg MCHC 31.9 L 30.4 L (32.0-37.0) g/dL RDW 14.6 H 14.8 H (11.5-14.5) % Immature Gran # 0.05 H (0.00-0.04) 10*3/uL Neutrophils # 10.93 H 7.76 H (1.80-7.70) 10*3/uL Eosinophils # 0.00 L 0 L (0.04-0.35) 10*3/uL BUN 25 H (9-20) mg/dL Glucose 151 H (74-99) mg/dL
--- NOTE | 2025-04-10 12:05 | P.ANPRN ---
Procedure Note - Anesthesia - Nerve Block Performed Right Gerard Single Time Out Performed: Yes Date of Procedure: 04/09/25 Procedure Start Time: 10:45 Procedure Stop Time: 10:49 Location of Patient: PreOp Indication: Acute Post-Operative Pain, Requested by Surgeon Sedation Type: Sedate with meaningful contact maintained Preparation: Sterile Prep Position: Supine Needle Types: Pajunk Needle Gauge: 21 Ultrasound used to visualize needle placement: Yes Ultrasound used to observe medication spread: Yes Blood Aspirated: No Pain Paresthesia on Injection Noted: No Resistance on Injection: Normal Image Stored and Saved: Yes Events: Uneventful and Well Tolerated (Ropivacaine 0.5% 20 cc was dexamethasone 4 mg)
--- NOTE | 2025-04-10 12:13 | P.DS ---
Providers Expected date of discharge: 04/10/25 Attending physician: Douglas Pinto Consults: 04/09/25 11:13 Consult Physician Routine Consulting Provider: [facility] Consult Reason/Comments: medical management Do you want consulting provider notified?: Yes 04/10/25 10:42 Consult to Anesthesia Routine Consulting Provider: Anesthesia,Services Consult Reason/Comments: postop headache/spinal Primary care physician: Meghana England MD - Discharge Diagnosis(es) (1) Osteoarthritis of right hip Current Visit: Yes Status: Acute (2) S/P total right hip arthroplasty Current Visit: Yes Status: Acute Hospital Course: This is a 60-year-old male with known history of degenerative arthritis of the right hip. The patient presented for evaluation as an outpatient. After discussion and consideration patient elects to proceed with total hip arthroplasty. The patient is seen preoperatively by Dr. Pinto and medically cleared for surgery by their primary care physician. Patient is admitted to [facility] on 04/09/2025 for total hip arthroplasty. The procedure is performed without complication or sequelae. The patient is doing well postoperatively. Labs and vital signs are stable on day of discharge. Patient developed a headache postoperatively and was evaluated by anesthesia for this prior to discharge. On day of discharge patient's hip incision is healing well. There is minimal erythema. There is no drainage noted at this time. There is minimal soft tissue swelling to the hip and thigh. Patient has full foot and ankle motion without difficulty or pain. Calf is soft and nontender to palpation. Neurovascular status to the right lower extremity is intact. Patient is discharged home in good condition. Please see med rec for accurate list of home medications. Plan - Discharge Summary Discharge Rx Participant: Yes New Discharge Prescriptions: New Apixaban [Eliquis] 2.5 mg PO BID 30 Days #60 tab Sennosides [Senokot] 2 tab PO DAILY PRN #60 tablet PRN Reason: Constipation traMADol HCl [Ultram] 1 - 2 tab PO Q6H PRN #28 tab PRN Reason: Pain No Action Aspirin [Adult Low Dose Aspirin EC] 81 mg PO BID Omeprazole [PriLOSEC] 20 mg PO AC-BRKFST lisinopriL 40 mg PO BID Metoprolol Tartrate [Lopressor] 100 mg PO BID DULoxetine HCL [Cymbalta] 60 mg PO BID Multivitamins, Thera [Multivitamin (formulary)] 1 tab PO DAILY Acetaminophen Tab [Tylenol] 650 mg PO Q6H PRN PRN Reason: Pain NIFEdipine [Adalat CC] 30 mg PO HS lamoTRIgine [Lamotrigine] 150 mg PO HS Discharge Medication List Aspirin [Adult Low Dose Aspirin EC] 81 mg PO BID 07/15/16 [History] Metoprolol Tartrate [Lopressor] 100 mg PO BID 09/15/20 [History] Omeprazole [PriLOSEC] 20 mg PO AC-BRKFST 09/15/20 [History] lisinopriL 40 mg PO BID 09/15/20 [History] Acetaminophen Tab [Tylenol] 650 mg PO Q6H PRN 01/20/22 [History] DULoxetine HCL [Cymbalta] 60 mg PO BID 01/20/22 [History] Multivitamins, Thera [Multivitamin (formulary)] 1 tab PO DAILY 01/20/22 [History] NIFEdipine [Adalat CC] 30 mg PO HS 12/25/24 [History] lamoTRIgine [Lamotrigine] 150 mg PO HS 04/03/25 [History] Apixaban [Eliquis] 2.5 mg PO BID 30 Days #60 tab 04/09/25 [Rx] Sennosides [Senokot] 2 tab PO DAILY PRN #60 tablet 04/09/25 [Rx] traMADol HCl [Ultram] 1 - 2 tab PO Q6H PRN #28 tab 04/09/25 [Rx] Follow up Appointment(s)/Referral(s): Douglas Pinto DO [Doctor of Osteopathic Medicine] - 04/24/25 1:25 pm Activity/Diet/Wound Care/Special Instructions: Attend outpatient physical therapy at [facility] in [place] as arranged prior to surgery. Weightbearing as tolerated with walker. Leave dressing intact. Dressing may be removed by home care nurse or by patient in 7 days. Then change dressing twice daily until follow up. May shower with initial dressing intact and after removal. If dressing become saturated, please remove. Please take Eliquis twice daily for 30 days to help prevent blood clots. Recommend use of compression stockings daily until follow up to help prevent swelling and blood clots. May remove at night before sleeping. Please follow-up with [facility] in 2 weeks and call with any questions or concerns, . Discharge Disposition: HOME WITH HOME HEALTH SERVICES
--- NOTE | 2025-04-10 15:44 | P.PN ---
Progress Note - Text Progress Note Date: 04/10/25 Pt underwent a R hip arthroplasty 1 day ago and developed a headache after the spinal injection. He was already started on Eliquis when seen by Dr Orellana, and the headache was resolving, so no intervention was required. Pt has been discharged home.
--- NOTE | 2025-04-10 20:00 | XR ---
Fluoroscopy INDICATION: Pain FINDINGS: Fluoroscopy time: 53 seconds. Total dose area product (DAP) in uGy*m?, mGy*cm? (or similar): 5.0536 Images obtained: 0. Images document anterior right hip replacement IMPRESSION: 1. Documentation of fluoroscopy. [facility], , 04/10/2025 7:57 PM
[2025-04-10] MEDS ORDERED: NIFEdipine XL 30 MG TAB.ER.24 PO SCH (21:00)
== END 2025-04-10 13:23 | disposition home health service (06) ==
LOC: OR 08:49 → 4SSUR 13:45 → OR 04-10 13:23
PROVIDERS: ATTEND Orthopaedic Surgery
DX: M16.11 Unilateral primary osteoarthritis, right hip (principal); G89.18 Other acute postprocedural pain; I11.0 Hypertensive heart disease with heart failure; I50.9 Heart failure, unspecified; G47.33 Obstructive sleep apnea (adult) (pediatric); H91.90 Unspecified hearing loss, unspecified ear; Z79.01 Long term (current) use of anticoagulants; Z79.82 Long term (current) use of aspirin; Z79.899 Other long term (current) drug therapy; Z86.711 Personal history of pulmonary embolism; Z86.718 Personal history of other venous thrombosis and embolism; Z88.5 Allergy status to narcotic agent; Z90.49 Acquired absence of other specified parts of digestive tract
CPT/HCPCS: 97161; 97165; 64473; 80048; 85025 ×2; 73501; 27130; C1776; J2250; J1100; J0690 ×2; J2405; J3010; J1171 ×2; J2795; J2704; J2371